=== PATIENT | male | born 1945 | race Caucasian/White ===

== ENCOUNTER → 2017-12-01 | Outpatient (CLI) | payer BC, MEDICARE ==
[~2017-12-01] MED LIST: AMLO-104 PO; ONDA4TAB97 PO; PER PO; SCOT TD
--- NOTE | 2017-12-01 10:07 | RADIOLOGY IMAGING REPORT ---
FAC[place] [facility] [place]IENT NAME: Felipe Coates : 1945 MR: [id number] V: [id number] EXAM DATE: ORDERING PHYSICIAN: FREDDY MORALES TECHNOLOGIST: Location: [facility] - [place] Patient: Felipe Coates : 1945 Visit/Account:[id number] Date of Sevice: 12/01/2017 LIVER HISTORY: Elevated LFTs COMPARISON: CT January 10, 2016 FINDINGS: Gallbladder: Gallbladder wall appears slightly irregular and thickened measuring 4 mm in thickness. There is shadowing emanating from the gallbladder which could represent stones sludge or calcificatio ns within the wall. There is a negative Ziegler sign by technologist notation Liver: Liver is mildly enlarged with increased echogenicity throughout the liver which can be seen wi th fatty infiltration or other infiltrative process Common duct: Normal, six mm diameter. Pancreas: No demonstration of a pancreatic mass although the tail is partially obscured by bowel gas Right kidney: Right kidney appears unremarkable measuring 13 cm in length. Upper abdominal aorta and IVC: The aorta appears patent. IVC is obscured by bowel gas Ascites: None visualized. IMPRESSION: Mild hepatomegaly with increased echogenicity throughout the liver which can be seen with fatty infil tration other infiltrative process Gallbladder wall appears thickened and slightly irregular with shadowing emanating from the gallbladd er. This could be related to shadowing stones sludge or calcifications within the gallbladder wall Report Dictated By: Deidre Padron MD at 12/01/2017 9:13 AM Report E-Signed By: Deidre Padron MD at 12/01/2017 10:02 AM WSN:[email or web address]
== END ==
LOC: US 07:08
PROVIDERS: ATTEND Nurse Practitioner Family
DX: K80.20 Calculus of gallbladder without cholecystitis without obstruction (principal); R16.0 Hepatomegaly, not elsewhere classified
CPT/HCPCS: 76705

== ENCOUNTER 2018-06-30 15:05 | Inpatient (IN) | payer BC, MEDICARE ==
[~2018-06-30] VITALS: Ht 177.8 cm; Wt 116.1 kg
[2018-06-30] MEDS ORDERED: UNKOWN (15:31)
[2018-06-30] MEDS ORDERED: NS(*) 0.9% 1000 ML BAG 1,000 ML IV ONE ×2 (15:44→16:55)
[2018-06-30] MEDS ORDERED: ONDANSETRON 4 MG/2 ML VIAL IVP ONE (15:45)
--- NOTE | 2018-06-30 15:49 | ER Report ---
History and Physical Time Seen By MD: 15:35 Hx. of Stated Complaint: HAD A SMALL BOWEL OBSTRUCTION LAST YEAR. STATES ABOUT A MONTH AGO HE WOULD "HAVE THESE EVENTS" THAT WOULD LAST A DAY THAT CONSISTED OF VOMITTING AND DRY HEAVING. THIS OCCURED 4 TIMES LAST MONTH. AFTER DINNER THURSDAY THIS WEEK HE BEGAN VOMITTING AND HAS NOT STOPPED SINCE HPI/ROS CHIEF COMPLAINT: Nausea HISTORY OF PRESENT ILLNESS: 72 yo male presents to the ED with c/o N/V since Thursday. Reports that he has had N/V about once a week for several weeks before Thursday. He states that he vomits brown fluid numerous times per day since Thursday and that he belches frequently as well. Reports that he has not been able to eat during this time and states his last BM was 3 days ago, but that it was formed and was not unusual in color or consistency. Denies fever, chills, shortness of breath, or chest pain. Denies pain or difficulty with urination. REVIEW OF SYSTEMS: Constitutional: As above. Eyes: No discharge. ENT: No sore throat. Cardiovascular: As above. Respiratory: As above. Gastrointestinal: As above. Genitourinary: As above. Musculoskeletal: No back pain. Skin: No rashes. Neurological: No headache. Allergies: Coded Allergies: No Known Drug Allergies (Unverified , 01/10/16) Home Meds Reported Medications Losartan Potassium (LOSARTAN POTASSIUM) 50 Mg Tablet, 1 TAB PO QDAY 06/30/18 Discontinued Reported Medications [Unkown] No Conflict Check 06/30/18 Past Medical/Surgical History Past surgical and medical history of a pituitary tumor, hypertension, cardiac disease, small bowel obstruction with surgical repair, neck Shoulder and leg surgery, alcohol use. Reviewed Nurses Notes: Yes Hx Smoking: No Hx Substance Use Disorder: No Hx Alcohol Use: Yes (2-3 daily ) Constitutional Vital Sign - Last 24 Hours 06/30/18 06/30/18 06/30/18 06/30/18 15:22 15:30 16:00 16:30 Temp 97.5 Pulse 94 91 87 85 Resp 18 B/P (MAP) 135/92 135/90 (105) 129/82 (98) 134/89 (104) Pulse Ox 93 90 95 94 O2 Delivery Room Air 06/30/18 06/30/18 17:00 17:30 Pulse 93 91 B/P (MAP) 134/123 (127) 129/88 (102) Pulse Ox 93 93 Physical Exam General Appearance: The patient is alert, has no immediate need for airway protection and no signs of toxicity. Eyes: Pupils equal and round no pallor or injection. ENT, Mouth: Mucous membranes are dry. Respiratory: There are no retractions, lungs are clear to auscultation. Cardiovascular: Regular rate and rhythm. No murmurs or rubs noted. Gastrointestinal: Abdomen is distended and diffusely tender, no masses, bowel sounds hypoactive, with a few distant tinkles. No abdominal bruits. Neurological: A&Ox4, no focal neuro deficits noted. Moving all extremities. Following all commands. Skin: Warm and dry, no rashes. Musculoskeletal: Neck is supple non tender. Extremities are nontender, nonswollen and have full range of motion. DIFFERENTIAL DIAGNOSIS: After history and physical exam differential diagnosis was considered for bowel obstruction, gastroenteritis, pancreatitis, intussusception, diverticulitis, constipation. Medical Decision Making Data Points Result Diagram: 06/30/18 1527 06/30/18 1527 Laboratory Hematology Test 06/30/18 15:27 Red Blood Count 5.93 M/uL (4.00-5.60) Mean Corpuscular Volume 91.5 fL (80.0-96.0) Mean Corpuscular Hemoglobin 31.1 pg (26.0-33.0) Mean Corpuscular Hemoglobin Concent 34.0 g/dL (32.0-36.0) Red Cell Distribution Width 13.1 % (11.5-14.5) Mean Platelet Volume 7.3 fL (7.2-11.1) Neutrophils (%) (Auto) 77.1 % (39.4-72.5) Lymphocytes (%) (Auto) 14.5 % (17.6-49.6) Monocytes (%) (Auto) 8.1 % (4.1-12.4) Eosinophils (%) (Auto) 0.0 % (0.4-6.7) Basophils (%) (Auto) 0.3 % (0.3-1.4) Nucleated RBC Relative Count (auto) 0.1 /100WBC Neutrophils # (Auto) 6.9 K/uL (2.0-7.4) Lymphocytes # (Auto) 1.3 K/uL (1.3-3.6) Monocytes # (Auto) 0.7 K/uL (0.3-1.0) Eosinophils # (Auto) 0.0 K/uL (0.0-0.5) Basophils # (Auto) 0.0 K/uL (0.0-0.1) Nucleated RBC Absolute Count (auto) 0.01 K/uL Sodium Level 140 mmol/L (137-145) Potassium Level 4.2 mmol/L (3.5-5.0) Chloride Level 107 mmol/L (98-107) Carbon Dioxide Level 16 mmol/L (22-30) Blood Urea Nitrogen 22 mg/dl (9-21) Creatinine 1.20 mg/dl (0.66-1.25) Glomerular Filtration Rate Calc 59.3 Random Glucose 177 mg/dl (75-110) Calcium Level 10.2 mg/dl (8.4-10.2) Total Bilirubin 2.0 mg/dl (0.2-1.3) Aspartate Amino Transf (AST/SGOT) 40 U/L (0-35) Alanine Aminotransferase (ALT/SGPT) 40 U/L (0-56) Alkaline Phosphatase 137 U/L (0-126) Total Protein 8.8 g/dl (6.3-8.2) Albumin 4.9 g/dl (3.5-5.0) Chemistry Test 06/30/18 15:27 White Blood Count 8.9 k/uL (4.5-11.0) Red Blood Count 5.93 M/uL (4.00-5.60) Hemoglobin 18.5 g/dL (14.0-18.0) Hematocrit 54.3 % (42.0-52.0) Mean Corpuscular Volume 91.5 fL (80.0-96.0) Mean Corpuscular Hemoglobin 31.1 pg (26.0-33.0) Mean Corpuscular Hemoglobin Concent 34.0 g/dL (32.0-36.0) Red Cell Distribution Width 13.1 % (11.5-14.5) Platelet Count 326 K/uL (150-450) Mean Platelet Volume 7.3 fL (7.2-11.1) Neutrophils (%) (Auto) 77.1 % (39.4-72.5) Lymphocytes (%) (Auto) 14.5 % (17.6-49.6) Monocytes (%) (Auto) 8.1 % (4.1-12.4) Eosinophils (%) (Auto) 0.0 % (0.4-6.7) Basophils (%) (Auto) 0.3 % (0.3-1.4) Nucleated RBC Relative Count (auto) 0.1 /100WBC Neutrophils # (Auto) 6.9 K/uL (2.0-7.4) Lymphocytes # (Auto) 1.3 K/uL (1.3-3.6) Monocytes # (Auto) 0.7 K/uL (0.3-1.0) Eosinophils # (Auto) 0.0 K/uL (0.0-0.5) Basophils # (Auto) 0.0 K/uL (0.0-0.1) Nucleated RBC Absolute Count (auto) 0.01 K/uL Glomerular Filtration Rate Calc 59.3 Calcium Level 10.2 mg/dl (8.4-10.2) Total Bilirubin 2.0 mg/dl (0.2-1.3) Aspartate Amino Transf (AST/SGOT) 40 U/L (0-35) Alanine Aminotransferase (ALT/SGPT) 40 U/L (0-56) Alkaline Phosphatase 137 U/L (0-126) Total Protein 8.8 g/dl (6.3-8.2) Albumin 4.9 g/dl (3.5-5.0) EKG/Imaging Imaging Location: [facility] - [place] Patient: Felipe Coates : 1945 Visit/Account:[id number] Date of Sevice: 06/30/2018 HISTORY: Evaluate nasogastric tube position. DATE: 06/30/2018 5:24 PM TECHNIQUE: CHEST SINGLE AP COMPARISON: Chest radiographs January 13, [address] abdomen and pelvis June 30, 2018 FINDINGS: The cardiomediastinal silhouette is of normal size and contour. No pleural effusion. No pneumothorax. No consolidation. The lungs are adequately expanded. The NG tube tip is not definitively identified. IMPRESSION: Tube tip not identified. Report Dictated By: Inocencia Moy MD at 06/30/2018 6:53 PM Report E-Signed By: Inocencia Moy MD at 06/30/2018 6:55 PM WSN:[id number] Location: [facility] - [place] Patient: Felipe Coates : 1945 Visit/Account:[id number] Date of Sevice: 06/30/2018 CT ABDOMEN PELVIS W/ CON HISTORY: Abdominal pain TECHNIQUE: Axial images were obtained through the abdomen and pelvis with intravenous contrast . One of the following dose optimization techniques was utilized in the performance of this exam: automated exposure control; adjustment of the mA and/or kv according to patient size; or use of iterative reconstruction technique. Specific details can be referenced in the facility's radiology CT exam operational policy. CONTRAST: 75 cc of Isovue-370 COMPARISON: CT abdomen/pelvis 01/10/2016 FINDINGS: Visualized lung bases: Negative. Hepatobiliary: Gallstones with pneumobilia. No biliary ductal dilatation. Spleen: Negative. Adrenals: Negative. Pancreas: Negative. Kidneys/ureters/bladder: Nonobstructing left renal calculi measuring up to 4 mm. No ureteral calculus or hydronephrosis. Left renal cysts measuring up to 3.7 x 2.6 cm. Bowel/peritoneum/mesentery: Fluid-filled dilated stomach as well as multiple fluid-filled dilated small bowel loops measuring up to 4 cm. Fluid-filled mildly dilated colon to the mid descending colon where there is a 4 cm segment of mass like narrowing. No free air. There is stool and gas within the more distal colon. Trace amount of fluid along the leaves of the mesentery without michelle ascites. Vessels: Mild arterial calcifications. Lymph nodes: Negative. Pelvic genitourinary: Negative. Bones/body wall: ORIF of the right femoral neck. Multilevel moderate degenerative disc disease within the spine. Grade 1 anterolisthesis at L4-L5 measuring 4 mm. Tiny umbilical hernia containing fat. Other findings: None significant IMPRESSION: 1. Findings concerning for an obstructing mass measuring 4 cm in length at the mid descending colon with fluid-filled, mildly dilated preceding colon and small bowel.. Recommend colonoscopy for further evaluation. 2. Trace amount of fluid along the leaves of the mesentery without michelle asci olesya. 3. Gallstones with pneumobilia without biliary ductal dilatation. Findings could be secondary to instrumentation or recently passed stone. Recommend clinical correlation. Report Dictated By: Janes Gutierrez MD at 06/30/2018 4:42 PM Report E-Signed By: Janes Gutierrez MD at 06/30/2018 4:53 PM WSN:[email or web address] ED Course/Re-evaluation Clinical Indication for ER IV: Hydration, IV Access ED Course Patient admitted to room. History and physical obtained with differential diagnoses considered. IV started. CBC, CMP, Lipase and UA obtained. H&H 18.5 and 54.3. Glucose 177. 1000 mL normal saline bolus. Zofran administered with improvement in nausea. Patient refuses pain medication at this time. CT with contrast of abdomen revealed small bowel obstruction due to possible mass. Did review the results with the patient. Also spoke with Dr. Saleem the general surgeon cash applications manager, the patient was admitted to the surgical services for small bowel obstruction. NG tube was placed with approximately 900 mL of yellowish to dark greenish material. 06/30/2018 5:38:[address] Saleem, general surgeon cash applications manager. Reviewed the case and he was able to review images. Decision made to admit patient. The patient was seen and evaluated by LEONARD Baptiste student, I agree with her assessment and plan, I did evaluate and assess the patient myself. Decision to Disposition Date: Jun 30, 2018 Decision to Disposition Time: 17:37 Depart Departure Latest Vital Signs Vital Signs Date Time Temp Pulse Resp B/P (MAP) Pulse Ox O2 Delivery O2 Flow Rate FiO2 06/30/18 17:30 91 129/88 (102) 93 06/30/18 15:22 97.5 18 Room Air Impression: Primary Impression: Small bowel obstruction Condition: Improved Disposition: Admitted from ER Referrals: FREDDY MORALES (PCP) WENCESLAO OLSEN-BC Jun 30, 2018 15:49
[2018-06-30 15:54] LABS: PLATELET COUNT, AUTOMATED 326 K/uL (150-450)
[2018-06-30] MEDS ORDERED: IOPAMIDOL 76% 150 ML INFUS BTL 150 ML ONE (16:06)
--- NOTE | 2018-06-30 16:57 | RADIOLOGY IMAGING REPORT ---
FACILITY: [facility] - [place] PATIENT NAME: Felipe Coates : 1945 MR: [id number] V: [id number] EXAM DATE: ORDERING PHYSICIAN: WENCESLAO OLSEN TECHNOLOGIST: Location: [facility] Patient: Felipe Coates : 1945 Visit/Account:[id number] Date of Sevice: 06/30/2018 CT ABDOMEN PELVIS W/ CON HISTORY: Abdominal pain TECHNIQUE: Axial images were obtained through the abdomen and pelvis with intravenous contrast . One of the following dose optimization techniques was utilized in the performance of this exam: automate d exposure control; adjustment of the mA and/or kv according to patient size; or use of iterative rec onstruction technique. Specific details can be referenced in the facility's radiology CT exam operati onal policy. CONTRAST: 75 cc of Isovue-370 COMPARISON: CT abdomen/pelvis 01/10/2016 FINDINGS: Visualized lung bases: Negative. Hepatobiliary: Gallstones with pneumobilia. No biliary ductal dilatation. Spleen: Negative. Adrenals: Negative. Pancreas: Negative. Kidneys/ureters/bladder: Nonobstructing left renal calculi measuring up to 4 mm. No ureteral calculu s or hydronephrosis. Left renal cysts measuring up to 3.7 x 2.6 cm. Bowel/peritoneum/mesentery: Fluid-filled dilated stomach as well as multiple fluid-filled dilated sm all bowel loops measuring up to 4 cm. Fluid-filled mildly dilated colon to the mid descending colon w here there is a 4 cm segment of mass like narrowing. No free air. There is stool and gas within the m ore distal colon. Trace amount of fluid along the leaves of the mesentery without michelle ascites. Vessels: Mild arterial calcifications. Lymph nodes: Negative. Pelvic genitourinary: Negative. Bones/body wall: ORIF of the right femoral neck. Multilevel moderate degenerative disc disease withi n the spine. Grade 1 anterolisthesis at L4-L5 measuring 4 mm. Tiny umbilical hernia containing fat. Other findings: None significant IMPRESSION: 1. Findings concerning for an obstructing mass measuring 4 cm in length at the mid descending colon w ith fluid-filled, mildly dilated preceding colon and small bowel.. Recommend colonoscopy for further evaluation. 2. Trace amount of fluid along the leaves of the mesentery without michelle ascites. 3. Gallstones with pneumobilia without biliary ductal dilatation. Findings could be secondary to inst rumentation or recently passed stone. Recommend clinical correlation. Report Dictated By: Janes Gutierrez MD at 06/30/2018 4:42 PM Report E-Signed By: Janes Gutierrez MD at 06/30/2018 4:53 PM WSN:[email or web address]
[2018-06-30] MEDS ORDERED: LOSA50TA80 PO (18:16)
[2018-06-30 18:28] VITALS: BP 152/90
--- NOTE | 2018-06-30 18:58 | RADIOLOGY IMAGING REPORT ---
FACILITY: [facility] - [place] PATIENT NAME: Felipe Coates : 1945 MR: [id number] V: [id number] EXAM DATE: ORDERING PHYSICIAN: WENCESLAO OLSEN TECHNOLOGIST: Location: [facility] - [place] Patient: Felipe Coates : 1945 Visit/Account:[id number] Date of Sevice: 06/30/2018 HISTORY: Evaluate nasogastric tube position. DATE: 06/30/2018 5:24 PM TECHNIQUE: CHEST SINGLE AP COMPARISON: Chest radiographs January 13, [address] abdomen and pelvis June 30, 2018 FINDINGS: The cardiomediastinal silhouette is of normal size and contour. No pleural effusion. No pne umothorax. No consolidation. The lungs are adequately expanded. The NG tube tip is not definitively i dentified. IMPRESSION: Tube tip not identified. Report Dictated By: Inocencia Moy MD at 06/30/2018 6:53 PM Report E-Signed By: Inocencia Moy MD at 06/30/2018 6:55 PM WSN:[id number]
--- NOTE | 2018-06-30 19:46 | Gen Surgery History & Physical ---
History of Present Illness Chief Complaint vomiting History of Present Illness 72 yo m with vomiting for the last several days. he has had vomiting periodically over the last 6 wks. normal bms. last bm was 2 days ago. +flatus. minimal abd pain. h/o surgery for sbo in the past. no other abd surgeries. no colonoscopy in the past. appropriate amount of urine but dark. 20 wt loss after stopping etoh. pmh/psh: laparoscopic surgery for sbo, orthopedic surgeries, htn fam hx: mother had lung ca from smoking, father had unknown ca that spread to his back, dm social hx: quit etoh about 5 mo ago, no cigs History Home Meds Reported Medications Losartan Potassium (LOSARTAN POTASSIUM) 50 Mg Tablet, 1 TAB PO QDAY 06/30/18 Discontinued Reported Medications [Unkown] No Conflict Check 06/30/18 Allergies: Coded Allergies: No Known Drug Allergies (Unverified , 01/10/16) Review of Systems Constitutional: Other (10 pt ros neg except per hpi) Exam General Appearance: Alert, Awake, No Acute Distress Neuro: No Gross deficits Eyes: Other (per, eomi) ENT: Moist Mucous Membranes Neck: No Masses Cardiovascular: Other (reg rate) Respiratory: No Respiratory Distress GI: Other (soft, mild distention, minimal ttp) Extremities: Other (no pitting edema) Integumentary: Skin Intact without Lesion / Mass Psych: Alert & Oriented X3, Appropriate Mood & Affect Medical Decision Making Data Points Result Diagram: 06/30/18 1527 06/30/18 1527 Assessment and Plan Problems: (1) Colon obstruction Assessment & Plan: 06/30/18: ngt, ice chips, pain/nausea control, sigmoidoscopy tomorrow, likely surgery after that, cea pending Copies to: FREDDY MORALES ; Venous Thromboembolism Antithrombotics Is Pt On Any Antithrombotics?: No LUIZ GEORGES Jun 30, 2018 19:46
[2018-06-30] MEDS ORDERED: PROMETHAZINE 25 MG/ML 1 ML AMP IVP PRN (19:50)
[2018-06-30] MEDS: NS(*) 0.9% 1000 ML BAG 1,000 ML IV SCH (20:09)
[2018-06-30] MEDS: ONDANSETRON 4 MG/2 ML VIAL IVP PRN (20:10)
[2018-06-30 22:53] VITALS: BP 148/85
[2018-07-01] VITALS (7 sets, daily range): BP systolic 139–154; BP diastolic 87–96; Ht 177.8 cm; Wt 116.1 kg
[2018-07-01] MEDS: ONDANSETRON 4 MG/2 ML VIAL IVP PRN ×2 (01:06→09:41)
[2018-07-01] MEDS: NS(*) 0.9% 1000 ML BAG 1,000 ML IV SCH (04:31)
--- NOTE | 2018-07-01 07:45 | General Surgery Progress Note ---
Subjective Progress Notes Subjective feels fine. large bm. Physical Exam Vital Signs Date Time Temp Pulse Resp B/P (MAP) Pulse Ox O2 Delivery O2 Flow Rate FiO2 07/01/18 02:54 97.7 83 16 149/96 (113) 94 Nasal Cannula 2.0 Intake and Output 07/01/18 07:00 Intake Total 2210 ml Output Total 2150 ml Balance 60 ml Intake IV Total 2210 ml Output Gastric Drainage Total 2150 ml # Voids 1 # Bowel Movements 1 General Appearance: No Acute Distress GI: Other (abd soft) Result Diagram: 06/30/18 1527 06/30/18 1527 Assessment and Plan Problems: (1) Colon obstruction Assessment & Plan: 06/30/18: ngt, ice chips, pain/nausea control, sigmoidoscopy tomorrow, likely surgery after that, cea pending 07/01/18: large bm. cont ngt. sigmoidoscopy today. Exam Sepsis Risk: No Definite Risk LUIZ GEORGES Jul 01, 2018 07:45
[2018-07-01] MEDS ORDERED: FAMOTIDINE(*) 20MG/50ML PREMIX 50 ML IVPB ONE (08:20)
[2018-07-01] MEDS ORDERED: NORMOSOL R SOLN(*) 1000 ML BAG 1,000 ML IV ONE (08:20)
[2018-07-01] MEDS ORDERED: MIDAZOLAM 2 MG/2 ML VIAL ONE (10:54)
[2018-07-01] MEDS ORDERED: KETAMINE HCL 500 MG/10 ML VIAL ONE (10:55)
--- NOTE | 2018-07-01 16:19 | Medical Nutrition Therapy ---
Nutrition Anthropometrics Height (Inches): 70.00 Height (Calculated Centimeters: 177.463497 Weight (Pounds): 256 Weight (Calculated Kilograms): 116.346 BMI: 36.8 Anirudh Nutrition Score: Adequate Anirudh Nutrition Risk Score: 20 Dietary Referral Nutrition Risk Factors: Nutrition Risk Comment: Physical Findings Physical Appearance: Obese BMI 30-39 Skin Appearance Skin Appearance: Edema Edema Location Modifier: Edema Location: Type of Edema: Degree of Edema: Gastrointestinal Symptoms GI Symtoms: Nausea, Change in Bowel Pattern Tube Present: NG Bowel Sounds: Recent Bowel Pattern: Stool Characteristics: Nutritional Diagnosis Nutritional Risk Acuity 1: GI Obstruction Nutritional Risk Acuity 4: Modified Diet Past Medical History: HTN Nutritional Acuity: 1-High Diet Type: NPO (Nothing by Mouth) Nutrition Monitoring & Eval RD Patient Assessment Time: [address] Assessment Type: RD Assessment Patient Nutrition Acuity: 1-High Follow Up Date: Jul 04, 2018 Nutritional Comment: 07/01 Pt was for a small bowel obstruction. Pt was put on NPO with ice and has a NG tube to remove blockage. Pt may go into surgery if NG does not remove blockage. Pt has a hx of HTN which is being controled with medication. Pt has high levels of Hgb 18.5, Hct 54.3, BUN 22, RG 177, AST 40, total bilirubin 2, alkaline phosphate of 137, and total protein of 8.8. Will continue to monitor pt as they progress to PO diet. JULIAN XIE Jul 01, 2018 16:16
--- NOTE | 2018-07-02 12:43 | Short(Outpt) Discharge Summary ---
Discharge Summary Reason for Hosp/Final Diag: (1) Colon obstruction Hospital Course & Plan: 06/30/18: ngt, ice chips, pain/nausea control, sigmoidoscopy tomorrow, likely surgery after that, cea pending 07/01/18: large bm. cont ngt. sigmoidoscopy today. mass found on sigmoidoscopy. will transfer to [facility] for colonic stent placement so that partial colectomy can likely be done laparoscopically and in one stage. Departure Discharge to: Another Hospital Discharge Instructions Home Meds Reported Medications Losartan Potassium (LOSARTAN POTASSIUM) 50 Mg Tablet, 1 TAB PO QDAY 06/30/18 Discontinued Reported Medications [Unkown] No Conflict Check 06/30/18 Activity: As Tolerated Special Instructions: NG right nare, 20 gauge IV Left forearm LUIZ GEORGES Jul 02, 2018 12:43
== END 2018-07-01 15:30 | disposition short-term general hospital (02) | DRG 376 ==
LOC: ER 15:36 → MED 17:33
PROVIDERS: ADMIT Surgery; ATTEND Surgery
PROC: 0D9670Z Drainage of Stomach with Drainage Device, Via Natural or Artificial Opening (ICD-10-PCS; 2018-06-30)
PROC: 3E0H8GC Introduction of Other Therapeutic Substance into Lower GI, Via Natural or Artificial Opening Endoscopic (ICD-10-PCS; 2018-07-01)
PROC: 0DBN8ZX Excision of Sigmoid Colon, Via Natural or Artificial Opening Endoscopic, Diagnostic (ICD-10-PCS; principal; 2018-07-01 10:53)
DX: C18.6 Malignant neoplasm of descending colon (principal); I10 Essential (primary) hypertension
CPT/HCPCS: 71045; 74177; 82040; 82247; 82310; 82374; 82378; 82435; 82565; 82947; 84075; 84132; 84155; 84295; 84450; 84460; 84520; 85025; 88305; 88342; 96361; 96374; 99284; J2250; J2405; J2550; J7030; Q9967

== ENCOUNTER → 2018-07-01 | Outpatient (CLI) | payer BC, MEDICARE ==
[~2018-07-01] MED LIST changes: +LOSA50TA80 PO; +UNKOWN
[2018-07-01 15:21] VITALS: BMI 36.7
== END ==
LOC: AMB 15:01
PROVIDERS: ATTEND Nurse Practitioner
DX: K63.0 Abscess of intestine (principal)
CPT/HCPCS: A0425; A0426

== ENCOUNTER 2018-08-09 15:41 | Inpatient (IN) | payer BC, MEDICARE ==
[2018-07-01 15:21] VITALS: Ht 177.8 cm; Wt 110.2 kg
[~2018-08-09] VITALS: Ht 177.8 cm; Wt 110.2 kg
[2018-08-09 16:04] VITALS: BP 95/73
[2018-08-09] MEDS ORDERED: FLUSH 10 ML SYR IVP PRN (16:30)
[2018-08-09] MEDS ORDERED: MORPHINE 2 MG/ML SYR IVP PRN (16:30)
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
[2018-08-09] MEDS ORDERED: LIDOCAINE/SOD BICARB 8.4% SYR ONE (16:54)
[2018-08-09] MEDS: ONDANSETRON 4 MG/2 ML VIAL IVP PRN ×2 (17:07→21:08)
[2018-08-09] MEDS: NS(*) 0.9% 1000 ML BAG 1,000 ML IV PRN (17:07)
[2018-08-09 19:52] VITALS: BP 107/72
[2018-08-09] MEDS: FAMOTIDINE 20 MG TAB PO SCH (20:17)
[2018-08-09] MEDS: ACETAMINOPHEN 325 MG TAB PO PRN (21:08)
[2018-08-09 23:39] VITALS: BP 100/68
[2018-08-10] MEDS: NS(*) 0.9% 1000 ML BAG 1,000 ML IV PRN (01:04)
[2018-08-10 03:24] VITALS: BP 92/54
[2018-08-10 06:18] LABS: PLATELET COUNT, AUTOMATED 276 K/uL (150-450)
[2018-08-10 06:54] VITALS: BP 101/67
--- NOTE | 2018-08-10 08:03 | General Surgery Progress Note ---
Subjective Progress Notes Subjective Feeling better this morning. No pain. Nausea better. UOP has picked up. Physical Exam Vital Signs Date Time Temp Pulse Resp B/P (MAP) Pulse Ox O2 Delivery O2 Flow Rate FiO2 08/10/18 06:54 97.7 78 16 101/67 (78) 95 Nasal Cannula 1.0 Intake and Output 08/10/18 07:00 Intake Total 500 ml Output Total 150 ml Balance 350 ml Intake Oral 500 ml Output Stool Total 150 ml # Bowel Movements 1 General Appearance: Alert, Awake, No Acute Distress, Afebrile GI: Soft and Non-Tender (Dressing C/D/I, stoma is pink and functional.) Extremities: Warm, Perfused Result Diagram: 08/10/18 0532 08/10/1832 Assessment and Plan Problems: (1) Cancer of descending colon Status: Chronic Assessment & Plan: 08/10/18: Doing better this morning. Stop IV fluids. Continue regular diet. PT/OT, wound care. Will ask PT/wound care to evaluate for wound vac placement. Stoma teaching. Lovenox, H2 jesenia. ECF eval. (2) Wound of abdomen Status: Chronic (3) Dehydration Status: Resolved Condition Stable. Time Spent: < 30 min Exam Sepsis Risk: No Definite Risk SARWAT BLOOD MD Aug 10, 2018 08:03
[2018-08-10] MEDS: ENOXAPARIN 40 MG/0.4ML SYR SC SCH (08:51)
[2018-08-10] MEDS: LOSARTAN POTASSIUM 50 MG TAB PO SCH (08:51)
[2018-08-10] MEDS: FAMOTIDINE 20 MG TAB PO SCH ×2 (08:51→20:09)
[2018-08-10] MEDS: APAP/HYDROCODONE 325/5 TAB PO PRN (12:05)
[2018-08-10 12:41] VITALS: BP 96/64
--- NOTE | 2018-08-10 15:30 | NUR ---
patient currently refusing the attempt to void. pt has not voided since 629. pt was educated on protocol and risks associated with not having a spontaneous void every 6 hours. pt's educated for assistance with pt's non-compliance.
--- NOTE | 2018-08-10 15:55 | Medical Nutrition Therapy ---
Nutrition Anthropometrics Height (Inches): 70.00 Height (Calculated Centimeters: 177.692564 Weight (Pounds): 243 Weight (Calculated Kilograms): 110.223 BMI: 34.9 Anirudh Nutrition Score: Probably Inadequate Anirudh Nutrition Risk Score: 14 Dietary Referral Nutrition Risk Factors: Diff. Swallowing Nutrition Risk Comment: Physical Findings Physical Appearance: Obese BMI 30-39 Skin Appearance Skin Appearance: Edema Edema Location Modifier: Both Edema Location: Upper Extremity Type of Edema: Degree of Edema: 3+ Gastrointestinal Symptoms GI Symtoms: Change in Bowel Pattern Tube Present: Bowel Sounds: Recent Bowel Pattern: Stool Characteristics: Nutritional Diagnosis Nutritional Risk Acuity 2: Swallowing Problem (r/t scar from trach), Abcess/Non-Healing Wound, New Colostomy Past Medical History: HTN Nutritional Acuity: 2-Moderate Nutrition Diagnosis: Increased Nutrient Needs, Altered GI Function Nutrition Etiology: Psychological Issues Nutrition Problem/Etiology/Sym: AEB colostomy and non-healing wound. Adjusted Energy Requirement Re: 2678 (HB adj for obesity X 1.3 SF) Protein Requirement: 115 (1.5gm/kg IBW) Fluid Requirement: 2675 (1ml/kcal) Diet Type: Regular Nutrition Intervention: Cont diet as ordered, Encourage intake, Between meal supplement Additional Diet Restrictions: PUT PROTEIN POWDER IN FOOD Diet Comment To [facility]: OFFER MARTÍNEZ AT BRFT AND SUPPER Nutrition Monitoring & Eval Nutrition Goals: Eat 75-100% Meal, Drink > 2 liters/day RD Patient Assessment Time: [address] Assessment Type: RD Assessment Patient Nutrition Acuity: 2-Moderate Follow Up Date: Aug 13, 2018 Nutritional Comment: 5/4 Pt admitted with non healing wound and colostomy. Pt reporting difficulity with swallowing r/t scar from trach. Pt is eating 75% of meals. Will obtain list of foods that are easy for him to swallow. Hct 32.8, Hgb 11.1, both low. Will cont to monito and encourage intake. HASEEB HOWE Aug 10, 2018 15:49
--- NOTE | 2018-08-10 16:08 | NUR ---
Occupational Therapy Impression Pt with PT wound care PT this afternoon, unavailable for OT evaluation. Per EMR, pt likely demonstrates need for further skilled rehab services to optimize (I) for ADLs. Will follow and complete evaluation as pt is available. Occupational Therapy Goals Patient's Goal
--- NOTE | 2018-08-10 16:15 | NUR ---
Physical Therapy Impression Wound vac dressing applied with 125mmHg continuous suction and bridged between all midline wound openings. Plan to change dressing on Thursday08/13/18. Physical Therapy Goals 1. Pt to be SBA/CGA for sit to/from supine transfers 2. Pt to be SBA/CGA for sit to/from stand transfers 3. Pt to tolerate ambulation x 150' with least restrictive device and SBA 4. Pt to tolerate up/down 4 steps with rail and SBA/CGA to access environment. Patient's Goals
--- NOTE | 2018-08-10 16:32 | NUR ---
Physical Therapy Impression PT/OT rossi completed together for pt safety and support. 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 Pt requires encouragement to participate in any functional activity, indicating that everything hurts. Pt has recently been provided with pain medication for dressing change and is slightly agreeable to complete supine to/from sit transfer with cues for log roll technique to minimize discomfort conservatively as well. Pt tolerated this well and did note improved tolerance for this activity as compared to previous attempts. Pt declines to stand for bedding change, and instead opts to roll side to side once returned to supine, in order for nursing to complete this activity. Pt declines to side step to head of bed to facilitate better positioning in bed, and instead insists on being boosted with draw sheet which requires total assist of 3 people to complete. Physical Therapy Goals 1. Pt to be SBA/CGA for sit to/from supine transfers 2. Pt to be SBA/CGA for sit to/from stand transfers 3. Pt to tolerate ambulation x 150' with least restrictive device and SBA 4. Pt to tolerate up/down 4 steps with rail and SBA/CGA to access environment. Patient's Goals
--- NOTE | 2018-08-10 16:49 | NUR ---
Occupational Therapy Impression Initial OT evaluation completed. Pt with high PLOF. Assist x2 supine to sit and sit to supine with log roll. Tolerated sitting EOBx5 minutes for partial bed bath. Pt then requesting return to supine in bed. Pt will benefit from further OT services to optimize (I) and tolerance for engagement in ADLs/IADLs. Occupational Therapy Goals 1) Pt will be Min A UB/LB dressing. 2) Pt will be Min A toilet task. 3) Pt will be Min A grooming.hygiene seated. Patient's Goal
[2018-08-10 17:07] VITALS: BP 95/58
--- NOTE | 2018-08-10 18:36 | NUR ---
patient continues to refuse the attempt to void. pt has not voided since 629. pt was educated on protocol and risks associated with not having a spontaneous void every 6 hours. Patient became more uncooperative with education and this RN quietly excused herself from the room. MD aware of pt's non-compliance.
[2018-08-10 19:33] VITALS: BP 85/52
[2018-08-10] MEDS: ACETAMINOPHEN 325 MG TAB PO PRN (20:09)
[2018-08-10 23:21] VITALS: BP 129/79
[2018-08-11 02:55] VITALS: BP 101/62
[2018-08-11 06:13] LABS: PLATELET COUNT, AUTOMATED 273 K/uL (150-450)
[2018-08-11 07:05] VITALS: BP 93/58
[2018-08-11] MEDS: APAP/HYDROCODONE 325/5 TAB PO PRN ×2 (07:41→20:57)
--- NOTE | 2018-08-11 08:33 | General Surgery Progress Note ---
Subjective Progress Notes Subjective No complaints. Feeling better. Not much pain. Tolerating diet. Appetite improving. Physical Exam Vital Signs Date Time Temp Pulse Resp B/P (MAP) Pulse Ox O2 Delivery O2 Flow Rate FiO2 08/11/18 07:05 98.1 84 20 93/58 (70) 93 Nasal Cannula 1.0 Intake and Output 08/11/18 07:00 Intake Total 1040 ml Output Total 450 ml Balance 590 ml Intake Oral 1040 ml Output Urine Total 350 ml Stool Total 100 ml General Appearance: Alert, Awake, No Acute Distress, Afebrile GI: Soft and Non-Tender (Wound vac dressing is in place with a good seal. Stoma is pink and functional.) Extremities: Warm, Perfused Result Diagram: 08/11/1860208/11/18602 Assessment and Plan Problems: (1) Cancer of descending colon Status: Chronic Assessment & Plan: 08/10/18: Doing better this morning. Stop IV fluids. Continue regular diet. PT/OT, wound care. Will ask PT/wound care to evaluate for wound vac placement. Stoma teaching. Lovenox, H2 jesenia. ECF eval. : Doing well. Continue PT/OT, wound care, stoma education. To ECF in the next day or two if approved. (2) Wound of abdomen Status: Chronic (3) Dehydration Status: Resolved Condition Stable. Time Spent: < 30 min Exam Sepsis Risk: No Definite Risk SARWAT BLOOD MD Aug 11, 2018 08:33
[2018-08-11] MEDS: LOSARTAN POTASSIUM 50 MG TAB PO SCH (09:00)
--- NOTE | 2018-08-11 10:44 | NUR ---
ECF Referral - Met with patient and his yesterday to discuss rehab philosophy. very agreeable, patient was very short with his replies, to the point that I asked him what I had done to upset him. He replied with he is so frustrated, so many people saying they will do certain things and then it not working out. He said he would rather then return to [facility], conversation redirected to possibilities and potential. Patient has [employer]BS and will require a preauthorization, informed of this. He huffed and rolled his eyes and stated "whatever". His overall goal is to go home, his states she will be caring for the colostomy and will be there to support him. Case management and [facility] notified to begin preauthorization.
--- NOTE | 2018-08-11 10:48 | NUR ---
ECF Referral - PASRR negative. Mychal Vangle stated she had started the preauthorization process.
[2018-08-11] MEDS: FAMOTIDINE 20 MG TAB PO SCH ×2 (11:43→20:57)
[2018-08-11] MEDS: ENOXAPARIN 40 MG/0.4ML SYR SC SCH (11:44)
--- NOTE | 2018-08-11 13:28 | NUR ---
Physical Therapy Impression Pt approached regarding PT/OT co-treat session to assist with mobility. Pt immediately states "No, I'm not getting out of bed today. My doctor told me to rest today and that I would be going upstairs to start therapy tomorrow. So I am resting and I'm going to take full advantage of this." Physical Therapy Goals 1. Pt to be SBA/CGA for sit to/from supine transfers 2. Pt to be SBA/CGA for sit to/from stand transfers 3. Pt to tolerate ambulation x 150' with least restrictive device and SBA 4. Pt to tolerate up/down 4 steps with rail and SBA/CGA to access environment. Patient's Goals
--- NOTE | 2018-08-11 13:39 | NUR ---
Occupational Therapy Impression Pt adamantly refusing PT/OT tx this date. Reporting "the doctor ordered" pt to rest today in preparation for transfer to [facility] tomorrow. WIll follow. Occupational Therapy Goals 1) Pt will be Min A UB/LB dressing. 2) Pt will be Min A toilet task. 3) Pt will be Min A grooming.hygiene seated. Patient's Goal
[2018-08-11 16:40] VITALS: BP 111/74
[2018-08-11 19:00] VITALS: BP 100/57
[2018-08-11] MEDS ORDERED: MELATONIN 3 MG TAB PO SCH (21:00)
[2018-08-11 23:09] VITALS: BP 107/65
[2018-08-12 02:53] VITALS: BP 114/69
[2018-08-12 07:14] VITALS: BP 105/66
[2018-08-12] MEDS: LOSARTAN POTASSIUM 50 MG TAB PO SCH (09:00)
[2018-08-12] MEDS: FAMOTIDINE 20 MG TAB PO SCH (09:20)
[2018-08-12] MEDS: ENOXAPARIN 40 MG/0.4ML SYR SC SCH (09:20)
--- NOTE | 2018-08-12 10:21 | General Surgery Progress Note ---
Subjective Progress Notes Subjective doing well. pain controlled. ameya po. Physical Exam Vital Signs Date Time Temp Pulse Resp B/P (MAP) Pulse Ox O2 Delivery O2 Flow Rate FiO2 08/12/18 07:14 98.3 81 22 105/66 (79) 92 Nasal Cannula 1.0 Intake and Output 08/12/18 07:00 Intake Total 700 ml Output Total 1200 ml Balance -500 ml Intake Oral 700 ml Output Urine Total 1200 ml # Voids 2 General Appearance: No Acute Distress GI: Other (abd soft, wound vac in place) Result Diagram: 08/11/1860208/11/18602 Assessment and Plan Problems: (1) Cancer of descending colon Status: Chronic Assessment & Plan: 08/10/18: Doing better this morning. Stop IV fluids. Continue regular diet. PT/OT, wound care. Will ask PT/wound care to evaluate for wound vac placement. Stoma teaching. Lovenox, H2 jesenia. ECF eval. : Doing well. Continue PT/OT, wound care, stoma education. To ECF in the next day or two if approved. 08/12/18: doing fine. to ecf today. (2) Wound of abdomen Status: Chronic (3) Dehydration Status: Resolved Exam Sepsis Risk: No Definite Risk LUIZ GEORGES Aug 12, 2018 10:21
--- NOTE | 2018-08-26 07:45 | Hospitalist Depart ---
Discharge Summary Reason for Hosp/Final Diag: (1) Cancer of descending colon Status: Chronic Hospital Course & Plan: 08/10/18: Doing better this morning. Stop IV fluids. Continue regular diet. PT/OT, wound care. Will ask PT/wound care to evaluate for wound vac placement. Stoma teaching. Lovenox, H2 jesenia. ECF eval. : Doing well. Continue PT/OT, wound care, stoma education. To ECF in the next day or two if approved. 08/12/18: doing fine. to ecf today. (2) Wound of abdomen Status: Acute (3) Dehydration Status: Resolved Departure Weight (Pounds): 243 Weight (Ounces): 8.0 Condition: Improved Discharge Instructions Home Meds Reported Medications Losartan Potassium (LOSARTAN POTASSIUM) 50 Mg Tablet, 1 TAB PO QDAY 06/30/18 Diet: Regular Activity: As Tolerated Special Instructions: d/c to extended care Venous Thromboembolism Antithrombotics Is Pt On Any Antithrombotics?: No LUIZ GEORGES Aug 26, 2018 07:45
== END 2018-08-12 11:29 | DRG 394 ==
LOC: MED 15:41
PROVIDERS: ADMIT Surgery; ATTEND Surgery
DX: K94.09 Other complications of colostomy (principal); C18.6 Malignant neoplasm of descending colon; E86.0 Dehydration; R53.83 Other fatigue; I10 Essential (primary) hypertension
CPT/HCPCS: 36415; 82310; 82374; 82435; 82565; 82947; 84132; 84295; 84520; 85025; 97161; 97163; 97166; 97605; 97606; J1650; J2405; J7030

== ENCOUNTER 2018-08-12 11:30 | Inpatient (IN) | payer BC, MEDICARE ==
[2018-07-01 15:21] VITALS: Ht 177.8 cm; Wt 111.4 kg
[~2018-08-12] VITALS: Ht 177.8 cm; Wt 111.4 kg
[2018-08-12] MEDS ORDERED: FLUSH 10 ML SYR IVP PRN (11:54)
[2018-08-12] MEDS ORDERED: MORPHINE 2 MG/ML SYR IVP PRN (11:54)
[2018-08-12] MEDS ORDERED: LOSARTAN POTASSIUM 50 MG TAB PO SCH (11:54)
[2018-08-12] MEDS ORDERED: ONDANSETRON 4 MG/2 ML VIAL IVP PRN (11:56)
[2018-08-12 12:37] VITALS: BP 106/70
--- NOTE | 2018-08-12 13:05 | Consultant Pharmacy Review ---
Clinical Documentation Clerk Review Medication Review Do All Mecications have a Diag: Yes Other General Cautions HYDROcodone / MOBILE THERAPIST Depressants Risk Rating D: Consider therapy modification Summary MOBILE THERAPIST Depressants may enhance the MOBILE THERAPIST depressant effect of HYDROcodone. Severity Major Reliability Rating Fair Patient Management Avoid concomitant use of hydrocodone and benzodiazepines or other MOBILE THERAPIST depressants when possible. These agents should only be combined if alternative treatment options are inadequate. If combined, limit the dosages and duration of each drug to the minimum possible while achieving the desired clinical effect. Consider starting with a 20% to 30% lower hydrocodone dose when using together with any other MOBILE THERAPIST depressant. This recommendation comes specifically from the prescribing information for the Zohydro ER brand of extended-release hydrocodone but is likely reasonable for other hydrocodone- containing products as well. Warn patients and caregivers about the risk of slowed or difficult breathing and/or sedation and monitor patients closely for evidence of excessive MOBILE THERAPIST depression. MOBILE THERAPIST Depressants Interacting Members Acrivastine; Afloqualone; Alcohol (Ethyl); Alfentanil; ALPRAZolam; Amisulpride; Amitriptyline; Amobarbital; Amoxapine; ARIPiprazole; ARIPiprazole Lauroxil; Asenapine; Baclofen; Benperidol; Benzhydrocodone; Bilastine; Blonanserin; Brexanolone; Brexpiprazole; Brimonidine (Ophthalmic); Brivaracetam; Bromazepam; Bromperidol; Brompheniramine; Buclizine; Buprenorphine; BusPIRone; Butabarbital; Butalbital; Butorphanol; Carbinoxamine; Cariprazine; Carisoprodol; Cetirizine (Systemic); Chloral Betaine; Chloral Hydrate; ChlordiazePOXIDE; Chlormethiazole; Chlorpheniramine; ChlorproMAZINE; Chlorzoxazone; Cinnarizine; Clemastine; CloBAZam; ClomiPRAMINE; ClonazePAM; CloNIDine; Clorazepate; Clothiapine; CloZAPine; Codeine; Cyclobenzaprine; Cyproheptadine; Dantrolene; Desflurane; Desipramine; Desloratadine; Deutetrabenazine; Dexbrompheniramine; Dexchlorpheniramine; DiazePAM; Difenoxin; Dihydrocodeine; DimenhyDRINATE; Dimethindene (Systemic); DiphenhydrAMINE (Systemic); DiphenhydrAMINE (Topical); Diphenoxylate; Dosulepin; Doxepin (Systemic); Doxepin (Topical); Doxylamine; Droperidol; Ebastine; Efavirenz; Emedastine (Systemic); Entacapone; Eperisone; Esketamine; Estazolam; Eszopiclone; Ethosuximide; Ethotoin; Ethyl Loflazepate; Etizolam; Ezogabine; Felbamate; FentaNYL; Fexofenadine; Flibanserin; Flunarizine; Flunitrazepam; Fl upentixol; FluPHENAZine; Flurazepam; Gabapentin; Gabapentin Enacarbil; Glutethimide; GuanFACINE; Haloperidol; Halothane; Heroin; HYDROcodone; HYDROmorphone; HydrOXYzine; Iloperidone; Imipramine; Isoflurane; Ketamine; Ketotifen (Systemic); LamoTRIgine; LevETIRAcetam; Levocetirizine; Levomethadone; Levorphanol; Lofepramine; Loprazolam; Loratadine; LORazepam; Lormetazepam; Loxapine; Lurasidone; Maprotiline; Meclizine; Melitracen [INT]; Meperidine; Meprobamate; Meptazinol; Mequitazine; Metaxalone; Methadone; Methocarbamol; Methohexital; Methotrimeprazine; Methoxyflurane; Methsuximide; Mianserin; Midazolam; Mirtazapine; Molindone; Morphine (Systemic); Moxonidine; Nalbuphine; Nalfurafine; Nefopam; Nitrazepam; Nitrous Oxide; Nordazepam; Normethadone; Nortriptyline; OLANZapine; Olopatadine (Systemic); Opium; Opium Tincture; Orphenadrine; Oxatomide; Oxazepam; Oxomemazine; OxyCODONE; OxyMORphone; Paliperidone; Paraldehyde; Paregoric; Pentazocine; PENTobarbital; Perampanel; Periciazine; Perphenazine; Pheniramine; PHENobarbital; Phenyltoloxamine; Pholcodine; Pimozide; Pipamperone [INT]; Pizotifen; Pomalidomide; Prazepam; Pregabalin; Primidone; Prochlorperazine; Promazine; Promethazine; Propofol; Protriptyline; Pyrilamine (Systemic); Quazepam; QUEtiapine; Ramelteon; Remife ntanil; Reserpine; Rilmenidine; RisperiDONE; Rupatadine; Scopolamine (Ophthalmic); Scopolamine (Systemic); Secobarbital; Sevoflurane; Sodium Oxybate; Stiripentol; SUFentanil; Sulpiride; Suvorexant; Tapentadol; Tasimelteon; Temazepam; Tetrabenazine; Thalidomide; Thiopental; Thioridazine; Thiothixene; Thonzylamine; TiaGABine; TiZANidine; Tofisopam; Tolcapone; Topiramate; TraMADol; TraZODone; Triazolam; Trifluoperazine; Trimeprazine; Trimipramine; Triprolidine; Valerian; Vigabatrin; Zaleplon; Ziconotide; Ziprasidone; Zolpidem; Zonisamide; Zopiclone; Zuclopenthixol Discussion A US Food and Drug Administration (FDA) drug safety communication states that combined use of opioids with benzodiazepines or other drugs that depress the MOBILE THERAPIST has resulted in serious side effects, including slowed or difficult breathing and deaths.1 Another FDA safety communication recommends that patients should not be excluded from treatment with methadone or buprenorphine for opioid dependence due to concomitant use of MOBILE THERAPIST depressants, considering both the potential risks of this combination and the potential risks of untreated opioid dependence.2 A cohort study found that the risk of opioid-related overdose was 10-fold higher in patients who also received benzodiazepines (7.0 per 10,000 person- years) compared with patients who received opioids alone (0.7 per 10,000 person years).3 In another analysis of opioid-treated patients in the [facility] database, the risk of from drug overdose was significantly higher among those prescribed concomitant benzodiazepines compared with those receiving opioids alone (HR 3.86).4 A cohort study of 4501 patients prescribed buprenorphine or methadone for treatment of opioid dependence reported an increased risk of both overdose-related deaths (adjusted HR 1.49 to 2.02) and all-cause mortality (adjusted HR 1.28 to 2.01) for patients receiving concurrent benzodiazepines, z-drugs (zopiclone, zolpidem, or zaleplon), or pregabalin.5 Not all of these increases were statistically significant, but the overall picture of a general increased risk with these combinations is consistent with other data. The odds of opioid-related was also significantly increased in opioid-treated patients who were exposed to gabapentin within 120 days (adjusted OR 1.5) as compared with those taking an opioid prescription alone, according to a case-control study of 1,256 cases (individuals who of an opioid-related cause) and 4,619 matched controls (opioid users).6 Similarly, another case-control study by the same group found that concomitant exposure to opioids and pregabalin within 120 days was associated with increased odds of opioid-related compared to opioids alone (adjusted OR 1.7) in an analysis of 1,417 cases and 5,097 matched controls.7 Additional analyses have concluded that other MOBILE THERAPIST depressants (eg, antipsychotics, antidepressants, antiepileptics) and alcohol are often implicated in opioid-related overdose and .8,9 The prescribing information for the Zohydro ER brand of extended-release hydrocodone also recommends starting at a 20% to 30% lower hydrocodone dose if being initiated in a patient who is taking another drug with MOBILE THERAPIST depressant effects.10 The recommendation further suggests consideration of a reduction in the dose of the other MOBILE THERAPIST depressant. This warning is due to the potential for additive or synergistic MOBILE THERAPIST depression, leading to an increased risk of adverse effects such as respiratory depression, hypotension, excessive sedation, and coma. Footnotes 1. US Food and Drug Administration. FDA Drug Safety Communication: FDA warns about serious risks and when combining opioid pain or cough medicines with benzodiazepines; requires its strongest warning. http://www.fda.gov/Drugs/DrugSafety/wrx854476.htm. Published November 07, 2015. Pneumococcal Vaccine HX Pneumo Vac ([id number]): No Comments Regarding the Review He may receive the flu and Prenvar 13 vaccines if he desires. DEREK DIAZ Aug 12, 2018 13:05
--- NOTE | 2018-08-12 14:30 | NUR ---
Physical Therapy Impression OT recently completed discussion with pt's , per pt consent, to address home environment set up and allow discussion regarding pt's previous perception of therapy interventions in SNF environment. Pt has taken a rather non-participatory role in rehab thus far and is now resistant to further therapy today, after transfer to room on ECF unit and reported fatigue. PT will complete mobility eval tomorrow in order to conserve energy and coordinate with wound vac dressing change and ostomy wafer change as well. Physical Therapy Goals Patient's Goals
--- NOTE | 2018-08-12 15:59 | OT ECF NOTE ---
Type of Note: Initial Note Primary Medical Diagnosis: Generalized weakness s/p recent complicated surgical history for colonic obstruction and descending colon cancer. Patient has a wound vac and recent colostomy Occupational Therapy Evaluation Date: 08/12/18 SUBJECTIVE: Prior Hospitalization: [facility] 06/30/18-07/01/18. Transferred to [facility] in [place] 07/01/18-July 2018. Pt had been at [facility] for skilled care about one week. Then, [facility] medical 08/09/18-. Prior Level of Function: Independent with all ADLs/IADLs. Occasionally, ambulating with a cane. 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 Prior Living Status: Single level house Spouse Assist by family Community Services: No known needs Home Accessibility: Stairs without rails-Two steps into home. One step down into bathroom. All needs on one level Tub/shower combination Spouse reports narrow doorways. May need to side step with RW into home office. Equipment Owned: Cane Medical Complications/Past Medical History: Please refer to EMR Psychosocial Support: Supportive spouse Pain Scale (0-10): None reported at time of evaluation Hand Dominance: Right OBJECTIVE: Strength: MMT: Right Left Shoulder Flexion [*] [*] Elbow Flexion [*] [*] Wrist Extension [*] [*] Block Sawyer [*] [*] (5= normal, 4= good, 3= fair, 2= poor, 1= trace) ROM: Right, Moderately limited Sensation: No paraesthesia reported Functional Transfer: Assistive Device: Transfer Ability: Subjective evaluation. Pt having returned to bed with nursing staff prior to OT arrival. Pt resistant to functional evaluation at this time. Extensive discussion regarding scheduling of future treatment sessions and creating a routine to promote pt engagement. ADL: Upper body dressing: Assistive device: Upper body dressing ability: Lower body dressing: Assistive device: Lower body dressing ability: Toileting: Assistive device: Toileting ability: Grooming/hygiene: Assistive device: Grooming ability: Bathing: Assistive device: Bathing ability: Standardized Assessment: Suzette Index of Activities of Daily Livin/20 upon initial evaluation (08/12/18). 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 Upon admission to [facility], pt is dependent with assist x1-2 for all self- cares. Recommend EZ lift for nursing staff at this time. "Vasyl" will benefit from skilled OT services to optimize independence for engagement in ADLs, improve activity tolerance for return to independence with IADLs, and decrease caregiver burden. Upon initial evaluation, pt resistant to evaluation. Spouse present and providing much of the information regarding PLOF. Problem List/Current Limitations: Pain Decreased activity tolerance Generalized weakness Lack of motivation Short Term Goals: 1) Pt will be Min A UB/LB dressing. 2) Pt will be Min A grooming/hygiene. 3) Pt will be Min A toilet ask. 4) Pt Suzette Index of ADLs score will improve by 2 points. 5) Pt will be Min A shower task. 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 If you have any questions, concerns, or comments about this report or plan, please contact me at . Jessica Parra MS, OTR/L Occupational Therapist HARRY
[2018-08-12] MEDS ORDERED: ONDANSETRON 4 MG ODT TABDP SL ONE (18:31)
[2018-08-12] MEDS: APAP/HYDROCODONE 325/5 TAB PO PRN ×2 (18:34→23:16)
[2018-08-12] MEDS: ONDANSETRON 4 MG ODT TABDP SL PRN (18:50)
[2018-08-12 19:50] VITALS: BP 111/66
[2018-08-12] MEDS: FAMOTIDINE 20 MG TAB PO SCH (20:33)
[2018-08-12] MEDS: MELATONIN 3 MG TAB PO SCH (20:33)
--- NOTE | 2018-08-12 22:41 | NUR ---
patient has refused to be repositioned this shift. He states it hurts his abdomen to be moved. Patient educated on the increased risk of pressure ulcers developing.
[2018-08-13 07:22] VITALS: BP 103/67
[2018-08-13] MEDS: FAMOTIDINE 20 MG TAB PO SCH ×2 (09:43→21:19)
[2018-08-13] MEDS: ENOXAPARIN 40 MG/0.4ML SYR SC SCH (09:43)
--- NOTE | 2018-08-13 10:40 | Medical Nutrition Therapy ---
Nutrition Anthropometrics Height (Inches): 70.00 Height (Calculated Centimeters: 177.431285 Weight (Pounds): 237 Weight (Calculated Kilograms): 107.501 BMI: 34 Hx Weight Loss: Yes Anirudh Nutrition Score: Probably Inadequate Anirudh Nutrition Risk Score: 15 Dietary Referral Nutrition Risk Factors: Unplanned Loss >10lbs Nutrition Risk Comment: Physical Findings Physical Appearance: Obese BMI 30-39 Skin Appearance Skin Appearance: Medial abdomen large wound with wound vac Edema Edema Location Modifier: Both Edema Location: Lower Extremity Type of Edema: Degree of Edema: 2+ Gastrointestinal Symptoms GI Symtoms: Nausea, Appetite Changes, Weight Changes, Change in Bowel Pattern Tube Present: Bowel Sounds: Recent Bowel Pattern: Colostomy Stool Characteristics: Brown, Soft Nutrition/Food History Increased Appetite Good Skipped Meals: Yes Nutritional Diagnosis Nutritional Risk Acuity 2: Abcess/Non-Healing Wound, New Colostomy Past Medical History: HTN, Colorectal cancer, Ostomy Placement, Cirrhosis Nutritional Acuity: 1-High Nutrition Diagnosis: Increased Nutrient Needs Nutrition Etiology: Physiological Causes Nutrition Problem/Etiology/Sym: large wound abdomen, wound vac, reported wt loss of 7% x 6 weeks Energy Requirement: 2926 (MSJ x AF 1.6) Protein Requirement: 130 (1.2g/kg) Fluid Requirement: 2926 (1mL/kcal) Diet Type: Diet as Tolerated SAMARIA/REG Nutrition Intervention: Between meal supplement, Vit/min support Food Likes: Beef Goulash, Gumbo, Minestrone Optional Order Time?: Yes Diet Comment To RSA: Please deliver Gene at 10am and 2pm (or deliver when pick up and delivery driver breakfast and lunch trays). Encourage protein at every meal. Nutrition Monitoring & Eval Nutrition Follow-Up: Fair Intake Nutrition Monitoring: Monitor weight, wound healing, food intake RD Patient Assessment Time: [address] Assessment Type: RD Assessment Patient Nutrition Acuity: 1-High Follow Up Date: Aug 17, 2018 Nutritional Comment: 08/13/2018-Reviewed pt medical hx. Pertinent PMH includes colorectal cancer, HTN, and cirrhosis. Pt has large open incision on medial abdomen currently has wound vac in place. Spoke with Vasyl and his Triny. Discussed increased energy and protein needs related to wound healing. Was on SAMARIA and was recieving Gene on Med/surg, reordered pt should receive at 10am and 2pm every day. Pt reported wt loss over the past 6 weeks. Pt stated his typical wt is 255 lbs and is currently 237 lbs (wt loss of 7% UBW). Encouraged pt to eat high protein foods. Will continue to monitor intakes, weight, and status of wound healing. ERIKA ZEPEDA Aug 13, 2018 10:40
[2018-08-13] MEDS: APAP/HYDROCODONE 325/5 TAB PO PRN ×2 (12:37→21:20)
--- NOTE | 2018-08-13 13:34 | NUR ---
Occupational Therapy Impression Pt alert, resistant to engage in OT tx. Refusing suggestions for tx. Extensive education for POC and rationale provided. Mod Ax2 sit<>stand with EZ lift. Standing x1 minute. Spouse plans to bring in personal cushion for pressure relief as pt infrequently repositions self. Pt then returning to chair for lunch. Continue POC. Occupational Therapy Goals 1) Pt will be Min A UB/LB dressing. 2) Pt will be Min A grooming/hygiene. 3) Pt will be Min A toilet ask. 4) Pt Suzette Index of ADLs score will improve by 2 points. 5) Pt will be Min A shower task. Patient's Goal
--- NOTE | 2018-08-13 13:50 | NUR ---
Physical Therapy Impression Please refer to PT eval report for mobility accomplished with initial treatment visit. Pt requires encouragement to participate in any additional activity aside from simply returning to bed with use of EZ lift. Physical Therapy Goals 1. Pt to be CGA/Min assist for sit to/from supine transfers 2. Pt to be CGA/Min assist for sit to/from stand transfers 3. Pt to be SBA/CGA for ambulation with least restrictive device x 100' 4. Pt to ameya up/down 4 steps with rail and SBA/CGA Patient's Goals
--- NOTE | 2018-08-13 15:15 | NUR ---
Physical Therapy Impression No selective debridement completed. Wound bed appears very healthy with excellent granulation base noted. Wounds cleansed with sterile saline and wound vac drape prepped around each individual opening to protect periwound skin. Black granufoam simplace dressing applied to connect all 6 separate sites along this midline dehisced incision area and communicate together through trac pad placed over deepest wound sites towards caudal end. Settings remain the same at 125mmHg, continuous suction with good seal obtained. Physical Therapy Goals 1. Pt to be CGA/Min assist for sit to/from supine transfers 2. Pt to be CGA/Min assist for sit to/from stand transfers 3. Pt to be SBA/CGA for ambulation with least restrictive device x 100' 4. Pt to ameya up/down 4 steps with rail and SBA/CGA Patient's Goals
[2018-08-13 19:55] VITALS: BP 102/71
[2018-08-13] MEDS: MELATONIN 3 MG TAB PO SCH (21:19)
[2018-08-14 07:24] VITALS: BP 109/70
[2018-08-14] MEDS: LOSARTAN POTASSIUM 50 MG TAB PO SCH (09:00)
[2018-08-14] MEDS: FAMOTIDINE 20 MG TAB PO SCH ×2 (09:11→21:19)
[2018-08-14] MEDS: MULTIVITAMINS CHEW SCH (09:12)
[2018-08-14] MEDS: MINERALS CHEW SCH (09:12)
[2018-08-14] MEDS: ENOXAPARIN 40 MG/0.4ML SYR SC SCH (09:12)
[2018-08-14 15:50] VITALS: BP 117/80
[2018-08-14] MEDS: APAP/HYDROCODONE 325/5 TAB PO PRN (17:40)
[2018-08-14] MEDS: MELATONIN 3 MG TAB PO SCH (21:19)
[2018-08-14] MEDS: ACETAMINOPHEN 325 MG TAB PO PRN (21:23)
[2018-08-15] MEDS: APAP/HYDROCODONE 325/5 TAB PO PRN ×2 (03:16→15:47)
[2018-08-15 07:36] VITALS: BP 105/72
[2018-08-15] MEDS: LOSARTAN POTASSIUM 50 MG TAB PO SCH (09:00)
[2018-08-15] MEDS: MINERALS CHEW SCH (09:11)
[2018-08-15] MEDS: ENOXAPARIN 40 MG/0.4ML SYR SC SCH (09:11)
[2018-08-15] MEDS: MULTIVITAMINS CHEW SCH (09:11)
[2018-08-15] MEDS: FAMOTIDINE 20 MG TAB PO SCH ×2 (09:11→20:52)
[2018-08-15 15:07] VITALS: BP 110/71
[2018-08-15] MEDS: ACETAMINOPHEN 325 MG TAB PO PRN (20:52)
[2018-08-15] MEDS: MELATONIN 3 MG TAB PO SCH (20:52)
[2018-08-16 08:36] VITALS: BP 106/71
[2018-08-16] MEDS: MULTIVITAMINS CHEW SCH (08:37)
[2018-08-16] MEDS: MINERALS CHEW SCH (08:37)
[2018-08-16] MEDS: ENOXAPARIN 40 MG/0.4ML SYR SC SCH (08:37)
[2018-08-16] MEDS: LOSARTAN POTASSIUM 50 MG TAB PO SCH (08:38)
[2018-08-16] MEDS: FAMOTIDINE 20 MG TAB PO SCH ×2 (08:38→21:43)
[2018-08-16] MEDS: APAP/HYDROCODONE 325/5 TAB PO PRN ×2 (08:43→21:44)
--- NOTE | 2018-08-16 09:43 | Medical Nutrition Therapy ---
Nutrition Anthropometrics Height (Inches): 70.00 Height (Calculated Centimeters: 177.737635 Weight (Pounds): 237 Weight (Calculated Kilograms): 107.501 BMI: 34 Hx Weight Loss: Yes Anirudh Nutrition Score: Probably Inadequate Anirudh Nutrition Risk Score: 15 Dietary Referral Nutrition Risk Factors: Unplanned Loss >10lbs Nutrition Risk Comment: Physical Findings Physical Appearance: Obese BMI 30-39 Skin Appearance Skin Appearance: Edema Edema Location Modifier: Both Edema Location: Lower Extremity Type of Edema: Degree of Edema: 2+ Gastrointestinal Symptoms GI Symtoms: Change in Bowel Pattern Tube Present: Bowel Sounds: Recent Bowel Pattern: Colostomy Stool Characteristics: Brown, Soft Nutritional Diagnosis Nutritional Risk Acuity 2: Abcess/Non-Healing Wound, New Colostomy Past Medical History: HTN, Colorectal cancer, Ostomy Placement, Cirrhosis Nutritional Acuity: 1-High Nutrition Diagnosis: Increased Nutrient Needs Nutrition Etiology: Physiological Causes Nutrition Problem/Etiology/Sym: large wound abdomen, wound vac, reported wt loss of 7% x 6 weeks Energy Requirement: 2926 (MSJ x AF 1.6) Protein Requirement: 130 (1.2g/kg) Fluid Requirement: 2926 (1mL/kcal) Diet Type: Diet as Tolerated SAMARIA/REG Nutrition Intervention: Between meal supplement, Vit/min support Food Likes: Beef Goulash, Gumbo, Minestrone Optional Order Time?: Yes Additional Diet Restrictions: BRING MARTÍNEZ WHEN CLIPPER AUTOMATIC BRFT TRAY AT ~10:00 AND LUNCH TRAY AT ~14:00 Diet Comment To RSA: Encourage protein at every meal. Nutrition Monitoring & Eval Nutrition Goals: Eat 75-100% Meal Nutrition Follow-Up: Fair Intake RD Patient Assessment Time: [address] Assessment Type: RD Re-Assessment Patient Nutrition Acuity: 1-High Follow Up Date: Aug 24, 2018 Nutritional Comment: 08/13/2018-Reviewed pt medical hx. Pertinent PMH includes colorectal cancer, HTN, and cirrhosis. Pt has large open incision on medial abdomen currently has wound vac in place. Spoke with Vasyl and his Triny. Discussed increased energy and protein needs related to wound healing. Was on SAMARIA and was recieving Martínez on Med/surg, reordered pt should receive at 10am and 2pm every day. Pt reported wt loss over the past 6 weeks. Pt stated his typical wt is 255 lbs and is currently 237 lbs (wt loss of 7% UBW). Encouraged pt to eat high protein foods. Will continue to monitor intakes, weight, and status of wound healing. HAYLEY 07/17 Pt cont on SAMARIA, eating 667% of small to regular portions. No nutr supplement intake reported. No new wt obtained. Pt cont 2+ edema BLE and 3+ edema to feet. Anticipate wt loss when edema resolved. Will cont to monitor and encourage high protein intake and supplment intake for wound healing. HASEEB HOWE Aug 16, 2018 09:43
--- NOTE | 2018-08-16 10:44 | PT ECF NOTE ---
Type of Note: Initial Note Primary Medical Diagnosis: Generalized weakness s/p recent complicated surgical history for colonic obstruction and descending colon cancer. Patient has a wound vac and recent colostomy Physical Therapy Mobility and Wound Vac Evaluation Date: 08/13/18 SUBJECTIVE: Prior Hospitalization: [facility] 06/30/18-07/01/18. Transferred to [facility] in [place] 07/01/18-July 2018. Pt had been at [facility] for skilled care about one week. Then, [facility] medical 08/09/18-08/12/18. Prior Level of Function: Independent with all ADLs/IADLs. Occasionally, ambulating with a cane. 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 Prior Living Status: Single level house Spouse Assist by family Community Services: No known needs Home Accessibility: Stairs without rails-Two steps into home. One step down into bathroom. All needs on one level Tub/shower combination Spouse reports narrow doorways. May need to side step with RW into home office. Equipment Owned: Cane Medical Complications/Past Medical History: Please refer to EMR Psychosocial Support: Supportive spouse Pain Scale (0-10): None reported at time of evaluation Hand Dominance: Right OBJECTIVE: Strength: Pt demos decreased initiation and participation, making it difficult to determine if weakness is related to true muscle weakness or generalized fatigue as opposed to disinterest. Pt agitated with any activity that would allow for objective measures and is only agreeable to participate in functional activity of returning to bed at time of eval. ROM: (please note any abnormalities) appears to be WFL; again declines any objective measure testing. Sensation: (please note any abnormalities) denies any paresthesias Other Neuro findings: appears to be WFL Bed Mobility: Encouraging log roll technique to protect abdominal incision and increase UE participation in skill. Assistive device: Bed rail; Head of bed slightly elevated Transfers: Minimum assistance/Moderate assistance; 2-person assist for pt safety Assistive Device: EZ/Patient assisted lift Gait: Pt states he is unable to ambulate Assistive device: Stairs: Assistive device: Timed Up and Go (>12 seconds indicated increased risk for falls): Pt refuses to attempt ambulation 10 meter walk test (0.6m/second cannot function independently): n/a Other Objective Measures: Please refer to wound care eval and treat note for details related to wound vac application for midline dehisced incision. ASSESSMENT: Prior to June 2018, pt was (I) with all ADLs/IADLs and working part time. Upon admission to [facility], pt is dependent with assist x1-2 for all self- cares. Recommend EZ lift for nursing staff at this time to ensure safety, as pt states he is unable to walk. "Vasyl" will benefit from skilled PT services to optimize independence for engagement in ADLs including transfers, ambulation and general mobility for return to independence with IADLs, and decrease caregiver burden. Upon initial evaluation, pt resistant to participation in objective measures and evaluation completed with basic functional mobility to returning to bed with EZ lift. Spouse present throughout. Following mobility eval, PT completed wound eval with dressing change for wound vac that was initiated on Med/Surg unit. Pt noted to have dehisced surgical incision line with 6 areas of disruption along midline. Settings of vac will continue at 125mmHg, continuous suction with dressing changes to be completed by PT twice weekly due to complications of tunneling and undermining in some areas. Problem List/Current Limitations: Pain, Decreased activity ameya, Decreased strength, Decreased balance, Generalized weakness, Decreased initiation Lack of motivation Short Term Goals: 1. Pt to be CGA/Min assist for sit to/from supine transfers 2. Pt to be CGA/Min assist for sit to/from stand transfers 3. Pt to be SBA/CGA for ambulation with least restrictive device x 100' 4. Pt to ameya up/down 4 steps with rail and SBA/CGA 5. Pt to be able to manage home unit wound vac safely with base of wound demonstrating improved granulation and gradual closure of base. [facility] Goals: Return home with [facility] services for mobility and wound vac management. Patient Goals: Return home Rehabilitation Prognosis: Fair Barriers for Discharge: Pt's level of engagement in basic life skills and participation in therapeutic activities to regain strength; adjustment to sudden onset of life altering medical situation. PLAN: The patient will benefit from skilled physical therapy services 5 times per week for 2 weeks including: Therapeutic Exercise, Therapeutic Activities Transfer Training, Gait Training, Stair Training, ADL's, Safety Training, Wound Care, Pt/Caregiver Training, Bed Mobility Thank you for this referral. If you have any questions, concerns, or comments about this report or plan, please contact me at . H. Monalisa Tan, PT, MPT, OMS MTDD
--- NOTE | 2018-08-16 11:21 | NUR ---
Physical Therapy Impression PT/OT co-treat for pt safety and time split for billing purposes. Pt's out of room upon initiation of therapy visit. Pt somewhat resistant to getting up "this early" at 11:00 but was agreeable to participate, once functional aspect of treatment was discussed. Pt is aware that sitting up for meals is more beneficial for digestion and sitting up rather than laying in bed, is helpful for proper breathing. Pt tolerated log roll with CGA and [id number] cues to complete transfer supine to sit with decreased strain to abdomen. Pt the participated in sit to stand, again with CGA and use of FWW, with [id number] transfer to bedside chair. Pt is resistant to completing any greater activity, but demos adequate strength with this activity, such that ambulation would certainly be possible. No selective debridement completed. Wound bed appears very healthy with excellent granulation base noted. Wounds cleansed with sterile saline and wound vac drape prepped around each individual opening to protect periwound skin. Black granufoam simplace dressing applied to connect all 6 seperate sites along this midline dehisced incision area and communicate together through trac pad placed over deepest wound sites towards caudal end. Settings remain the same at 125mmHg, continuous suction with good seal obtained. Physical Therapy Goals 1. Pt to be CGA/Min assist for sit to/from supine transfers 2. Pt to be CGA/Min assist for sit to/from stand transfers 3. Pt to be SBA/CGA for ambulation with least restrictive device x 100' 4. Pt to ameya up/down 4 steps with rail and SBA/CGA Patient's Goals
--- NOTE | 2018-08-16 11:40 | NUR ---
Occupational Therapy Impression Mod Ax1 supine to sit with cues for log roll. CGA x2 stand pivot bed<>chair with RW. Pt requires significant encouragement to engage in tx. Continue POC. Occupational Therapy Goals 1) Pt will be Min A UB/LB dressing. 2) Pt will be Min A grooming/hygiene. 3) Pt will be Min A toilet ask. 4) Pt Suzette Index of ADLs score will improve by 2 points. 5) Pt will be Min A shower task. Patient's Goal
[2018-08-16] MEDS ORDERED: SALINE NASAL GEL 14.1 GM TUBE PRN (12:15)
[2018-08-16] MEDS ORDERED: IBUPROFEN 600 MG TAB PO PRN (14:25)
--- NOTE | 2018-08-16 14:27 | NUR ---
ostomy Dr. England came to see pt. He removed the sutures from pt's stoma. Wafer changed. colostomy bag was cleaned and put back on. Dr. England also spoke to pt about the pain pt experiences behind his eyes, mostly behind his R eye. naproxen ordered for eye pain.
--- NOTE | 2018-08-16 14:33 | General Surgery Progress Note ---
Subjective Progress Notes Subjective Patient reports right eye pain with lateral gaze, states this has been present for an extended period of time. Not eating much. Some nausea with eating. Good ostomy output and gas passage via ostomy. Interacting poorly with PT/OT staff, refusing to participate. Patient Complains of: Gastrointestinal: Nausea Physical Exam Vital Signs Date Time Temp Pulse Resp B/P (MAP) Pulse Ox O2 Delivery O2 Flow Rate FiO2 08/16/18 08:56 Nasal Cannula 1.0 08/16/18 08:50 98.6 08/16/18 08:36 85 20 106/71 (83) 92 Intake and Output 08/16/18 07:00 Intake Total 660 ml Output Total 1000 ml Balance -340 ml Intake Oral 660 ml Output Urine Total 1000 ml # Voids 3 General Appearance: Alert, Awake, No Acute Distress Neuro: No Gross deficits Eyes: PERRLA ENT: Moist Mucous Membranes Cardiovascular: Normal Rhythm & Peripheral Pulses, Regular Rate and Rhythm, Other (Bilateral lower extremity pitting edema with bronzing.) Chest: No Tenderness GI: Soft and Non-Tender, Other (Active bowel sounds. Mature appearing ostomy with normal appearing enteric output. Small area of mucocutaneous separation at inferior aspect of ostomy. Wound vac in place over midline abdominal wound.) Extremities: Soft and Non Tender, Warm, Edema Integumentary: Skin Intact without Lesion / Mass Psych: Alert & Oriented X3 Monitor Interpretation: Normal Sinus Rhythm Assessment and Plan Problems: (1) Cancer of descending colon Status: Chronic Assessment & Plan: Descending colon cancer - s/p Kelsie procedure - evidence of good bowel function - diet as tolerated - PRN pain medications - outpatient planning for adjuvant therapy (2) Wound of abdomen Status: Acute Assessment & Plan: Midline surgical wound - continue wound vac therapy - MWF vac changes - mucocutaneous sutures removed from ostomy secondary to ulceration - no indication for abx Time Spent: > 30 min RACHEL WIGGINS MD Aug 16, 2018 13:18
[2018-08-16 16:50] VITALS: BP 115/76
[2018-08-16] MEDS: NAPROXEN 500 MG TAB PO SCH (17:22)
[2018-08-16] MEDS: MELATONIN 3 MG TAB PO SCH (21:44)
[2018-08-17 07:13] VITALS: BP 106/73
--- NOTE | 2018-08-17 07:55 | NUR ---
Pt's panic Pt's came and got staff, reported stated that patient is in shock. Patient was given warmed blankets, as he said he was cold. When this RN entered room, I found him hyperventilating through his mouth, his teeth chattering, he said, quite angrily, "I'm freezing and I'm under six blankets!" and appeared to be completely panicked. This RN then checked some VS; about half an hour previously his VS were WNL. Resp 28, HR 92, sats 91% about 2 minutes after encouraging him to breathe through his nose where he has O2 at 1LPM per NC, axillary temp 98.1. Rechecked 5 minutes later and pt found more relaxed, resp rate 20, and teeth chattering stopped but with blanket up over his face. Encouraged to leave blanket off of his face, keep breathing through his nose.
[2018-08-17] MEDS: LOSARTAN POTASSIUM 50 MG TAB PO SCH (08:42)
[2018-08-17] MEDS: NAPROXEN 500 MG TAB PO SCH ×2 (08:42→17:09)
[2018-08-17] MEDS: ENOXAPARIN 40 MG/0.4ML SYR SC SCH (08:42)
[2018-08-17] MEDS: MULTIVITAMINS CHEW SCH (08:42)
[2018-08-17] MEDS: MINERALS CHEW SCH (08:42)
[2018-08-17] MEDS: FAMOTIDINE 20 MG TAB PO SCH ×2 (08:42→21:31)
--- NOTE | 2018-08-17 10:49 | NUR ---
5-day MDS completed with pt. C: 15, D: 02, E: no concerns, Q: plans to DC to community, no referrals made yet. Will continue to follow for DC plans. Pt also states he felt depressed one day, reporting having a discussion regarding cancer diagnosis with surgeon yesterday. SW offered counseling and mental health resources to pt, who refuses at this time, stating he is trying to work through things and figure out what he wants to do. GABBI will continue to follow.
[2018-08-17] MEDS: APAP/HYDROCODONE 325/5 TAB PO PRN ×2 (13:29→21:31)
--- NOTE | 2018-08-17 15:16 | NUR ---
Occupational Therapy Impression CGAx1 supine to sit with cues for log roll. CGA x1 stand pivot bed<>chair with RW. Refused further ADLs. Pt declined further needs at this time. Continue POC. Occupational Therapy Goals 1) Pt will be Min A UB/LB dressing. 2) Pt will be Min A grooming/hygiene. 3) Pt will be Min A toilet ask. 4) Pt Suzette Index of ADLs score will improve by 2 points. 5) Pt will be Min A shower task. Patient's Goal
--- NOTE | 2018-08-17 15:45 | NUR ---
Physical Therapy Impression Pt required Min/Mod assist to stand from regular height chair without folded blankets. Pt ambulated 5' from chair to head of bed with CGA, FWW and chair follow for safety. Pt then required Min assist to lift LE's into bed for sit to supine. Wounds 1-6 healing gradually along length of incision line. Wound vac drape applied to protect periwound skin and black simplace granufoam placed to contact each wound with 0.25" plain packing strip used in areas of greater depth to wick drainage to foam. Exact dimensions of each site listed below: 1. 1.5cm L x 0.8cm W x 2cm D 2. main center line healed; suture site to R) side tunnels at 3 o'clock towards mideling, measuring 2cm in depth 3. 1cm L x 1cm W x 0.1cm D 4. 2cm L x 1.1cm W x 4cm D 5. 1cm L x 0.8cm W x 3.2cm D 6. 0.3cm L x 0.3cm W x 3.5cm D 250ml currently in original canister applied when wound vac was applied on Med/Surg unit Physical Therapy Goals 1. Pt to be CGA/Min assist for sit to/from supine transfers 2. Pt to be CGA/Min assist for sit to/from stand transfers 3. Pt to be SBA/CGA for ambulation with least restrictive device x 100' 4. Pt to ameya up/down 4 steps with rail and SBA/CGA Patient's Goals
[2018-08-17 19:50] VITALS: BP 99/63
[2018-08-17] MEDS: MELATONIN 3 MG TAB PO SCH (21:31)
[2018-08-18 07:44] VITALS: BP 106/75
[2018-08-18] MEDS: LOSARTAN POTASSIUM 50 MG TAB PO SCH (08:41)
[2018-08-18] MEDS: FAMOTIDINE 20 MG TAB PO SCH ×2 (09:36→20:50)
[2018-08-18] MEDS: NAPROXEN 500 MG TAB PO SCH ×2 (09:36→16:28)
[2018-08-18] MEDS: ENOXAPARIN 40 MG/0.4ML SYR SC SCH (09:37)
[2018-08-18] MEDS: MINERALS CHEW SCH (09:41)
[2018-08-18] MEDS: APAP/HYDROCODONE 325/5 TAB PO PRN ×2 (09:41→20:48)
[2018-08-18] MEDS: MULTIVITAMINS CHEW SCH (09:41)
--- NOTE | 2018-08-18 10:40 | General Surgery Progress Note ---
Subjective Progress Notes Subjective feels better today, increased participation with PT. Up in chair this am. Physical Exam Vital Signs Date Time Temp Pulse Resp B/P (MAP) Pulse Ox O2 Delivery O2 Flow Rate FiO2 08/18/18 07:44 97.8 81 16 106/75 (85) 96 Nasal Cannula 0.5 Intake and Output 08/18/18 07:00 Intake Total 360 ml Output Total 450 ml Balance -90 ml Intake Oral 360 ml Output Urine Total 350 ml Stool Total 100 ml # Voids 1 # Bowel Movements 3 General Appearance: Alert, Awake, No Acute Distress, Afebrile Neuro: No Gross deficits Cardiovascular: Normal Rhythm & Peripheral Pulses, Regular Rate and Rhythm Respiratory: No Respiratory Distress, Clear to Auscultation GI: Soft and Non-Tender, Other (VAC intact, stoma patent) Musculoskeletal: No Weakness/Pain Integumentary: Skin Intact without Lesion / Mass Psych: Alert & Oriented X3, Appropriate Mood & Affect Monitor Interpretation: Normal Sinus Rhythm Assessment and Plan Problems: (1) Cancer of descending colon Status: Chronic Assessment & Plan: Descending colon cancer - s/p Kelsie procedure - evidence of good bowel function - diet as tolerated - PRN pain medications - outpatient planning for adjuvant therapy Will need Oncology consult as an outpt. Check CBC and CMP this am. Had CEA checked at [facility] several weeks ago. (2) Wound of abdomen Status: Acute Assessment & Plan: Midline surgical wound - continue wound vac therapy - MWF vac changes - mucocutaneous sutures removed from ostomy secondary to ulceration - no indication for abx Cont VAC, open areas healing in. Time Spent: > 30 min ARIAN VASQUEZ MD Aug 18, 2018 10:40
[2018-08-18 11:37] LABS: PLATELET COUNT, AUTOMATED 415 K/uL (150-450)
--- NOTE | 2018-08-18 11:42 | NUR ---
Occupational Therapy Impression Pt. performed bed mobility (utilizing a log roll) with Min A and stand step pivot transfers with use of FWW to/from shower chair with Min A x1. Continue with POC. Occupational Therapy Goals 1) Pt will be Min A UB/LB dressing. 2) Pt will be Min A grooming/hygiene. 3) Pt will be Min A toilet ask. 4) Pt Suzette Index of ADLs score will improve by 2 points. 5) Pt will be Min A shower task. Patient's Goal
--- NOTE | 2018-08-18 15:39 | NUR ---
Physical Therapy Impression Discussed with Pt overall goal of PT interventions is to assist Pt to become independent and functional at home. Pt agreeable. Pt required Mod A x2 to stand to RW, CGA x2 to ambulate 5' with RW, and Mod A for B LEs into a flat bed. Pt will continue to benefit from skilled PT for functional mobility training. Physical Therapy Goals 1. Pt to be CGA/Min assist for sit to/from supine transfers 2. Pt to be CGA/Min assist for sit to/from stand transfers 3. Pt to be SBA/CGA for ambulation with least restrictive device x 100' 4. Pt to ameya up/down 4 steps with rail and SBA/CGA Patient's Goals
[2018-08-18 16:30] VITALS: BP 101/71
[2018-08-18] MEDS: MELATONIN 3 MG TAB PO SCH (20:49)
[2018-08-19 08:10] VITALS: BP 104/71
[2018-08-19] MEDS: LOSARTAN POTASSIUM 50 MG TAB PO SCH (09:00)
[2018-08-19] MEDS: MINERALS CHEW SCH (09:17)
[2018-08-19] MEDS: MULTIVITAMINS CHEW SCH (09:17)
[2018-08-19] MEDS: APAP/HYDROCODONE 325/5 TAB PO PRN ×2 (09:17→20:22)
[2018-08-19] MEDS: NAPROXEN 500 MG TAB PO SCH ×2 (09:18→16:34)
[2018-08-19] MEDS: FAMOTIDINE 20 MG TAB PO SCH ×2 (09:18→20:22)
[2018-08-19] MEDS: ENOXAPARIN 40 MG/0.4ML SYR SC SCH (09:18)
--- NOTE | 2018-08-19 10:58 | NUR ---
Occupational Therapy Impression Min A supine to sit with log roll. Pt with no carryover for sequencing log roll and no recall for request to have consistent bed mobility with HOB flat. CGAx2 stand pivot bed<>chair with RW. Pt refusing further mobility. Initiated UB ther HEP. Continue POC. Occupational Therapy Goals 1) Pt will be Min A UB/LB dressing. 2) Pt will be Min A grooming/hygiene. 3) Pt will be Min A toilet ask. 4) Pt Suzette Index of ADLs score will improve by 2 points. 5) Pt will be Min A shower task. Patient's Goal
--- NOTE | 2018-08-19 14:02 | NUR ---
Physical Therapy Impression Pt continues to require encouragement to participate in therapy interventions. ModA provided for STS transfers with RW, PT provided cues for sequencing prior to STS transfer. Pt ambulates with forward flexed posture and shuffling gait, completed 7 total feet of ambulation with a 180 degree turn. Pt is fairly self limiting and declines encouragement to ambulate further. PT instruction for seated LE ther-ex with cues for eccentric control. Physical Therapy Goals 1. Pt to be CGA/Min assist for sit to/from supine transfers 2. Pt to be CGA/Min assist for sit to/from stand transfers 3. Pt to be SBA/CGA for ambulation with least restrictive device x 100' 4. Pt to ameya up/down 4 steps with rail and SBA/CGA Patient's Goals
--- NOTE | 2018-08-19 14:26 | NUR ---
Vaccines Called Shaenl Dow's office to inquire about PNA and Flu vaccines; they do not have any records of him receiving them.
[2018-08-19 19:25] VITALS: BP 106/72
[2018-08-19] MEDS: MELATONIN 3 MG TAB PO SCH (20:22)
[2018-08-20 07:43] VITALS: BP 104/76
[2018-08-20] MEDS: LOSARTAN POTASSIUM 50 MG TAB PO SCH (09:00)
[2018-08-20] MEDS: MINERALS CHEW SCH (09:34)
[2018-08-20] MEDS: ENOXAPARIN 40 MG/0.4ML SYR SC SCH (09:34)
[2018-08-20] MEDS: MULTIVITAMINS CHEW SCH (09:34)
[2018-08-20] MEDS: FAMOTIDINE 20 MG TAB PO SCH ×2 (09:34→20:23)
[2018-08-20] MEDS: NAPROXEN 500 MG TAB PO SCH ×2 (09:34→17:05)
--- NOTE | 2018-08-20 10:48 | NUR ---
Occupational Therapy Impression Min A supine to sit with v/c's for log roll. CGA stand pivot x1 with RW bed<>chair. CGA ambulation x8ft with RW. UB ther ex HEP. Pt declined ADLs. SpO2 WNL on room air. Continue POC. Occupational Therapy Goals 1) Pt will be Min A UB/LB dressing. 2) Pt will be Min A grooming/hygiene. 3) Pt will be Min A toilet ask. 4) Pt Suzette Index of ADLs score will improve by 2 points. 5) Pt will be Min A shower task. Patient's Goal
--- NOTE | 2018-08-20 14:15 | NUR ---
Physical Therapy Impression Pt ambulated from chair on window side of bed, to opposite side of bed with W/C follow by to allow pt to feel more secure. Pt is capable of completing this distance without a sitting rest break and is stable once he is standing. Pt notes that he felt capable of more but was apprehensive initially. Pt agreeable to work towards greater distance ambulation and W/C follow does help him to feel more confident. Physical Therapy Goals 1. Pt to be CGA/Min assist for sit to/from supine transfers 2. Pt to be CGA/Min assist for sit to/from stand transfers 3. Pt to be SBA/CGA for ambulation with least restrictive device x 100' 4. Pt to ameya up/down 4 steps with rail and SBA/CGA Patient's Goals
--- NOTE | 2018-08-20 15:15 | NUR ---
Physical Therapy Impression Wounds 1-6 healing gradually along length of incision line. Wound vac drape applied to protect periwound skin and freshly epithelialized wounds and black simplace granufoam placed to contact each wound with 0.25" plain packing strip used in areas of greater depth to wick drainage to foam. Exact dimensions of each site listed below: 1. 1cm L x 0.5cm W x 2cm D 2. main center line healed; suture site to R) side tunnels at 3 o'clock towards midline, measuring 1.8cm in depth 3. healed 4. 2cm L x 1cm W x 3.9cm D 5. 1cm L x 0.8cm W x 3.2cm D 6. 0.2cm L x 0.5cm W x 3.4cm D 300ml currently in original canister placed when wound vac was applied on Med/Surg unit. Physical Therapy Goals 1. Pt to be CGA/Min assist for sit to/from supine transfers 2. Pt to be CGA/Min assist for sit to/from stand transfers 3. Pt to be SBA/CGA for ambulation with least restrictive device x 100' 4. Pt to ameya up/down 4 steps with rail and SBA/CGA Patient's Goals
[2018-08-20] MEDS: APAP/HYDROCODONE 325/5 TAB PO PRN (15:20)
[2018-08-20 15:27] VITALS: BP 100/67
[2018-08-20] MEDS: MELATONIN 3 MG TAB PO SCH (20:23)
[2018-08-21 07:00] VITALS: BP 100/68
--- NOTE | 2018-08-21 08:43 | General Surgery Progress Note ---
Subjective Progress Notes Subjective No complaints. No pain. Feeling much better. Physical Exam Vital Signs Date Time Temp Pulse Resp B/P (MAP) Pulse Ox O2 Delivery O2 Flow Rate FiO2 08/21/18 07:00 98.8 78 16 100/68 (79) 90 Room Air 08/19/18 03:12 1.0 Intake and Output 08/21/18 07:01 Intake Total 1220 ml Output Total 401 ml Balance 819 ml Intake Oral 1220 ml Output Urine Total 400 ml Stool Total 1 ml # Voids 2 # Bowel Movements 2 General Appearance: Alert, Awake, No Acute Distress, Afebrile GI: Soft and Non-Tender (Midline wounds are healing well with wound vac. Stoma is pink and functional.) Extremities: Warm, Perfused Result Diagram: 08/18/18 1123 08/18/18 1123 Monitor Interpretation: Normal Sinus Rhythm Assessment and Plan Problems: (1) Cancer of descending colon Status: Chronic Assessment & Plan: Descending colon cancer - s/p Kelsie procedure - evidence of good bowel function - diet as tolerated - PRN pain medications - outpatient planning for adjuvant therapy Will need Oncology consult as an outpt. Check CBC and CMP this am. Had CEA checked at [facility] several weeks ago. 08/20/18: Doing well. Continue PT/OT, wound care, stoma care education. Hopefully home in the next 2 weeks and then will refer to [facility] for adjuvant therapy. (2) Wound of abdomen Status: Acute Assessment & Plan: Midline surgical wound - continue wound vac therapy - MWF vac changes - mucocutaneous sutures removed from ostomy secondary to ulceration - no indication for abx Cont VAC, open areas healing in. Condition Stable. Time Spent: < 30 min SARWAT BLOOD MD Aug 21, 2018 08:43
[2018-08-21] MEDS: LOSARTAN POTASSIUM 50 MG TAB PO SCH (09:00)
[2018-08-21] MEDS: FAMOTIDINE 20 MG TAB PO SCH ×2 (09:29→21:30)
[2018-08-21] MEDS: NAPROXEN 500 MG TAB PO SCH ×2 (09:29→18:16)
[2018-08-21] MEDS: MINERALS CHEW SCH (09:29)
[2018-08-21] MEDS: MULTIVITAMINS CHEW SCH (09:29)
[2018-08-21] MEDS: ENOXAPARIN 40 MG/0.4ML SYR SC SCH (09:30)
[2018-08-21] MEDS: ONDANSETRON 4 MG ODT TABDP SL PRN (11:03)
[2018-08-21] MEDS: APAP/HYDROCODONE 325/5 TAB PO PRN (16:04)
[2018-08-21 17:45] VITALS: BP 101/72
--- NOTE | 2018-08-21 18:04 | NUR ---
Patient Eating in Dining Room Early in day, I discussed with patient the potential of getting up for dinner in addition to daily routine (up from 10-2). I also brought up the option to use the wheelchair to go outside, which patient seemed to think could be a good idea. At dinner time, weather was rainy and patient wanted to pivot transfer to recliner and eat in the dining room instead for a change of scenery. Patient appears to be enjoying eating out of the room and at a table. Patient also did not require any weight bearing assistance to get OOB.
[2018-08-21] MEDS: MELATONIN 3 MG TAB PO SCH (21:30)
[2018-08-22] MEDS: APAP/HYDROCODONE 325/5 TAB PO PRN ×2 (00:31→20:23)
[2018-08-22 07:11] VITALS: BP 111/77
[2018-08-22] MEDS: NAPROXEN 500 MG TAB PO SCH ×2 (08:43→17:26)
[2018-08-22] MEDS: MINERALS CHEW SCH (08:43)
[2018-08-22] MEDS: FAMOTIDINE 20 MG TAB PO SCH ×2 (08:43→20:23)
[2018-08-22] MEDS: MULTIVITAMINS CHEW SCH (08:43)
[2018-08-22] MEDS: LOSARTAN POTASSIUM 50 MG TAB PO SCH (08:44)
[2018-08-22] MEDS: ENOXAPARIN 40 MG/0.4ML SYR SC SCH (08:44)
[2018-08-22 15:40] VITALS: BP 93/62
--- NOTE | 2018-08-22 16:44 | NUR ---
Pt refusing OOB today Pt has flatly refused to get out of bed today. He has wanted to refuse to have his heels floated, but I impressed upon him his high risk of developing pressure ulcers on them and he did finally agree to it. He stated this morning that he had a discussion with PT this last week about today, about it being Father's Day, and said, "I need a break!" He is aware that he has a pressure area on his left buttock and I taught him that he needs to reposition frequently. He said he is unable to shift his weight from one side of the bed to the other. He has a large body, and staff have had to pull the draw sheet to one side of the bed in order to move him left or right for repositioning him on his side. He sometimes will yell when his feet are repositioned, states he has neuropathy, yet he could bend his knees and reposition his feet to flat on the bed when we boost him up in bed. We will continue to encourage him to reposition himself, to reposition q2 hours.
[2018-08-22] MEDS: MELATONIN 3 MG TAB PO SCH (20:23)
[2018-08-23 07:20] VITALS: BP 122/84
[2018-08-23] MEDS: MULTIVITAMINS CHEW SCH (08:31)
[2018-08-23] MEDS: MINERALS CHEW SCH (08:31)
[2018-08-23] MEDS: ENOXAPARIN 40 MG/0.4ML SYR SC SCH (08:32)
[2018-08-23] MEDS: NAPROXEN 500 MG TAB PO SCH ×2 (08:32→17:29)
[2018-08-23] MEDS: LOSARTAN POTASSIUM 50 MG TAB PO SCH (08:32)
[2018-08-23] MEDS: FAMOTIDINE 20 MG TAB PO SCH ×2 (08:32→21:09)
--- NOTE | 2018-08-23 09:16 | Gen Surgery History & Physical ---
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 He has been improving but is still weak and needs continued rehabilitation to gain strength. He is being admitted to extended care facility for continued wound care, stoma teaching, and PT/OT. History Problems: (1) HTN (hypertension) Status: Chronic (2) Cancer of descending colon Status: Chronic Comment: Descending colon cancer - s/p Kelsie procedure - evidence of good bowel function - diet as tolerated - PRN pain medications - outpatient planning for adjuvant therapy Will need Oncology consult as an outpt. Check CBC and CMP this am. Had CEA checked at [facility] several weeks ago. 08/20/18: Doing well. Continue PT/OT, wound care, stoma care education. Hopefully home in the next 2 weeks and then will refer to [facility] for adjuvant therapy. Home Meds Reported Medications Losartan Potassium (LOSARTAN POTASSIUM) 50 Mg Tablet, 1 TAB PO QDAY 06/30/18 Allergies: Coded Allergies: No Known Drug Allergies (Unverified , 01/10/16) Patient History: FH: cancer FATHER, FH: lung cancer MOTHER, Review of Systems All Systems Reviewed/Normal: Yes, Except as Noted Exam General Appearance: Alert, Awake, No Acute Distress, Afebrile Neuro: No Gross deficits Eyes: PERRLA GI: Abd Soft and Non-Tender (midline incision with multiple wounds tracking deeper treated with wound VAC, stoma is pink and functional) Extremities: Warm, Perfused Psych: Alert & Oriented X3, Appropriate Mood & Affect Assessment and Plan Problems: (1) Weakness Status: Acute Assessment & Plan: Admit to [facility] for physical therapy and occupational therapy (2) Colostomy care Status: Acute Assessment & Plan: Continue colostomy education (3) Wound of abdomen Status: Acute Assessment & Plan: Continue wound care with wound VAC (4) Cancer of descending colon Status: Chronic Condition Stable Time Spent: < 30 min Venous Thromboembolism VTE Risk Physician Assess for VTE Risk: Yes Patient's VTE Risk: Low VTE Diagnostic Test 2 Days Prior to Admit: No Antithrombotics Is Pt On Any Antithrombotics?: No SARWAT BLOOD MD Aug 23, 2018 09:16
--- NOTE | 2018-08-23 10:00 | NUR ---
Physical Therapy Impression Wound vac dressing change completed by PT due to tunneling and complicated placement near stoma site. Pt originally with wounds 1-6 along dehisced midline incision and area of previous retaining stitch with tunnel at 3 o'clock position towards midline. Specific measurements of each area listed below: 1) 0.9cmL x 0.4cmW x 2cm D- gauze packing strip 2) main wound site healed; tunnel from retaining stitch measures 2cm D 3) 0.4cm L x 0.3cm W x 0.1cm D 4) 2cm L x 1cm W x 3.8cm D- no longer communicating with wound area #5 5) 1cm L x 1.2cm W x 3 6) 0.2cm L x 0.4cm W x 3.4cm D Canister with 325ml Physical Therapy Goals 1. Pt to be CGA/Min assist for sit to/from supine transfers 2. Pt to be CGA/Min assist for sit to/from stand transfers 3. Pt to be SBA/CGA for ambulation with least restrictive device x 100' 4. Pt to ameay up/down 4 steps with rail and SBA/CGA Patient's Goals
--- NOTE | 2018-08-23 11:53 | NUR ---
Physical Therapy Impression Pt provided extra time to complete supine>sit transfer but was able to perform transfer with SBA from a mostly-flat bed and use of hand rail. Pt able to stand from the bed using the RW and CGA. Pt able to ambulate 15' using RW and CGA. Verbal cueing provided for more effective use of RW, Pt unable to integrate cueing and would benefit from continued gait training with RW. Pt has made steady progress with physical therapy and will continue to benefit from skilled PT for strengthening and functional mobility training in order to return home safely with increased independence with functional mobility and ADLs. Pt was independent with functional mobility and ADLs prior to recent medical interventions. Physical Therapy Goals 1. Pt to be CGA/Min assist for sit to/from supine transfers 2. Pt to be CGA/Min assist for sit to/from stand transfers 3. Pt to be SBA/CGA for ambulation with least restrictive device x 100' 4. Pt to ameya up/down 4 steps with rail and SBA/CGA Patient's Goals
--- NOTE | 2018-08-23 12:16 | Medical Nutrition Therapy ---
Nutrition Anthropometrics Height (Inches): 70.00 Height (Calculated Centimeters: 177.540379 Weight (Pounds): 240 Weight (Calculated Kilograms): 108.862 BMI: 34 Hx Weight Loss: Yes Anirudh Nutrition Score: Probably Inadequate Anirudh Nutrition Risk Score: 15 Dietary Referral Nutrition Risk Factors: Unplanned Loss >10lbs Nutrition Risk Comment: Physical Findings Physical Appearance: Obese BMI 30-39 Skin Appearance Skin Appearance: Edema Edema Location Modifier: Left Edema Location: Lower Extremity Type of Edema: Degree of Edema: 3+ Gastrointestinal Symptoms GI Symtoms: Change in Bowel Pattern Tube Present: Bowel Sounds: Recent Bowel Pattern: Colostomy Stool Characteristics: Brown, Soft Nutrition/Food History Good Nutritional Diagnosis Nutritional Risk Acuity 2: Abcess/Non-Healing Wound, New Colostomy Past Medical History: HTN, Colorectal cancer, Ostomy Placement, Cirrhosis Nutritional Acuity: 1-High Nutrition Diagnosis: Increased Nutrient Needs Nutrition Etiology: Physiological Causes Nutrition Problem/Etiology/Sym: large wound abdomen, wound vac, reported wt loss of 7% x 6 weeks Energy Requirement: 2926 (MSJ x AF 1.6) Protein Requirement: 130 (1.2g/kg) Fluid Requirement: 2926 (1mL/kcal) Diet Type: Diet as Tolerated SAMARIA/REG Nutrition Intervention: Between meal supplement, Vit/min support Food Likes: Beef Goulash, Gumbo, Minestrone Optional Order Time?: Yes Additional Diet Restrictions: BRING MARTÍNEZ WHEN SURGICAL CODER BRFT TRAY AT ~10:00 AND LUNCH TRAY AT ~14:00 Diet Comment To RSA: Encourage protein at every meal. Nutrition Monitoring & Eval Nutrition Monitoring: Monitor intake, wound healing, and weight. RD Patient Assessment Time: [address] Assessment Type: RD Re-Assessment Patient Nutrition Acuity: 1-High Follow Up Date: Aug 24, 2018 Nutritional Comment: 08/13/2018-Reviewed pt medical hx. Pertinent PMH includes colorectal cancer, HTN, and cirrhosis. Pt has large open incision on medial abdomen currently has wound vac in place. Spoke with Vasyl and his Triny. Discussed increased energy and protein needs related to wound healing. Was on SAMARIA and was recieving Martínez on Med/surg, reordered pt should receive at 10am and 2pm every day. Pt reported wt loss over the past 6 weeks. Pt stated his typical wt is 255 lbs and is currently 237 lbs (wt loss of 7% UBW). Encouraged pt to eat high protein foods. Will continue to monitor intakes, weight, and status of wound healing. HAYLEY 07/17 Pt cont on SAMARIA, eating 667% of small to regular portions. No nutr supplement intake reported. No new wt obtained. Pt cont 2+ edema BLE and 3+ edema to feet. Anticipate wt loss when edema resolved. Will cont to monitor and encourage high protein intake and supplment intake for wound healing. BK 08/23/18-Pt reports good appetite. Taking Martínez supplement. Does continue to have 3+ edema in RLE, and LLE. Wound is improving per nursing assessment. Colostomy output is normal. Will continue to encourage adequate intake to promote wound healing.ERIKA ZEPEDA Aug 23, 2018 11:56
--- NOTE | 2018-08-23 15:29 | NUR ---
Occupational Therapy Impression SBA supine to sit. CGAx2 ambulation x15ft with close w/c follow. Mod A sit to supine. Max Ax1 UB dressing. Pt will continue to benefit from skilled OT services to improve activity tolerance and optimize independence for ADLs. Occupational Therapy Goals 1) Pt will be Min A UB/LB dressing. 2) Pt will be Min A grooming/hygiene. 3) Pt will be Min A toilet ask. 4) Pt Suzette Index of ADLs score will improve by 2 points. 5) Pt will be Min A shower task. Patient's Goal
[2018-08-23 16:00] VITALS: BP 108/74
[2018-08-23] MEDS: MELATONIN 3 MG TAB PO SCH (21:09)
[2018-08-23] MEDS: APAP/HYDROCODONE 325/5 TAB PO PRN (21:09)
[2018-08-24 08:20] VITALS: BP 114/74
--- NOTE | 2018-08-24 08:25 | NUR ---
Pt wanting to sleep in Pt stated he wanted breakfast later, did not want to get OOB, so will give meds later this morning with breakfast.
[2018-08-24] MEDS: LOSARTAN POTASSIUM 50 MG TAB PO SCH (09:00)
[2018-08-24] MEDS: NAPROXEN 500 MG TAB PO SCH ×2 (09:18→16:59)
[2018-08-24] MEDS: FAMOTIDINE 20 MG TAB PO SCH ×2 (09:18→20:36)
[2018-08-24] MEDS: ENOXAPARIN 40 MG/0.4ML SYR SC SCH (09:18)
[2018-08-24] MEDS: MULTIVITAMINS CHEW SCH (09:19)
[2018-08-24] MEDS: MINERALS CHEW SCH (09:19)
--- NOTE | 2018-08-24 10:00 | NUR ---
14-day MDS completed with pt. C: 15, D: 03, E: no concerns, Q: plans to DC to community, no referrals made yet. Will continue to follow for DC plans.
--- NOTE | 2018-08-24 10:19 | NUR ---
Physical Therapy Impression Pt up in recliner upon PT arrival and notes that he plans to eat breakfast in the dining room. has set tray up at table in closest family eating area. Pt ambulated with W/C follow, from recliner to doorway of room with CGA. Pt then requested to sit and rest. Pt propeled to entry way of dining area and was then agreeable to ambulate 8' across carpeting to reach table, then with SBA. Pt would benefit from further therapy to enable return to prior level of function for safe and indep household mobility as well as improved tolerance for repeated activities throughout the day. Pt has improved in both motivation and abilities since admission, however, not yet at a level that would be considered safe to discharge home. Wound care continues twice weekly with wound vac dressing changes to address dehisced incision line. This is also improving gradually. Physical Therapy Goals 1. Pt to be CGA/Min assist for sit to/from supine transfers 2. Pt to be CGA/Min assist for sit to/from stand transfers 3. Pt to be SBA/CGA for ambulation with least restrictive device x 100' 4. Pt to ameya up/down 4 steps with rail and SBA/CGA Patient's Goals
--- NOTE | 2018-08-24 14:56 | NUR ---
Occupational Therapy Impression Initiated tx with care conference, spouse and pt present. Discussed POC and appropriate goals to work towards. Min A sit<>stand from chair. CGA ambulation 15ft with RW. CGA sit<>standsx2 from bed. Standing tolerance x1 minute 30seconds with bilateral UEs supporting on RW. Pt then fatigued requiring seated rest break. Oral care seated EOB with set-up. Mod A sit<>supine. Pt progressing well towards goals and will continue to benefit from skilled OT services to optimize independence for ADLs and improve activity tolerance in order to promote a safe discharge home. Occupational Therapy Goals 1) Pt will be Min A UB/LB dressing. 2) Pt will be Min A grooming/hygiene. 3) Pt will be Min A toilet ask. 4) Pt Suzette Index of ADLs score will improve by 2 points. 5) Pt will be Min A shower task. Patient's Goal
[2018-08-24] MEDS: ONDANSETRON 4 MG ODT TABDP SL PRN (18:49)
[2018-08-24 19:23] VITALS: BP 118/70
[2018-08-24] MEDS: MELATONIN 3 MG TAB PO SCH (20:36)
[2018-08-25 09:00] VITALS: BP 101/64
[2018-08-25] MEDS: LOSARTAN POTASSIUM 50 MG TAB PO SCH (09:00)
[2018-08-25] MEDS: MULTIVITAMINS CHEW SCH (09:20)
[2018-08-25] MEDS: FAMOTIDINE 20 MG TAB PO SCH ×2 (09:20→20:48)
[2018-08-25] MEDS: ENOXAPARIN 40 MG/0.4ML SYR SC SCH (09:20)
[2018-08-25] MEDS: MINERALS CHEW SCH (09:20)
[2018-08-25] MEDS: NAPROXEN 500 MG TAB PO SCH ×2 (09:20→16:45)
[2018-08-25] MEDS: ONDANSETRON 4 MG ODT TABDP SL PRN ×2 (10:05→16:45)
--- NOTE | 2018-08-25 12:57 | NUR ---
Occupational Therapy Impression Patient participated well in session with self care performance. Patient states that he was able to accomplish more today than he has. Patient does require a significant amount of time in order to complete activities. Occupational Therapy Goals 1) Pt will be Min A UB/LB dressing. 2) Pt will be Min A grooming/hygiene. 3) Pt will be Min A toilet ask. 4) Pt Suzette Index of ADLs score will improve by 2 points. 5) Pt will be Min A shower task. Patient's Goal
[2018-08-25] MEDS: APAP/HYDROCODONE 325/5 TAB PO PRN (16:45)
[2018-08-25 17:08] VITALS: BP 110/66
[2018-08-25] MEDS: MELATONIN 3 MG TAB PO SCH (20:48)
[2018-08-26 08:20] VITALS: BP 106/60
[2018-08-26] MEDS: LOSARTAN POTASSIUM 50 MG TAB PO SCH (09:00)
[2018-08-26] MEDS: MINERALS CHEW SCH (09:23)
[2018-08-26] MEDS: FAMOTIDINE 20 MG TAB PO SCH ×2 (09:23→20:34)
[2018-08-26] MEDS: MULTIVITAMINS CHEW SCH (09:23)
[2018-08-26] MEDS: NAPROXEN 500 MG TAB PO SCH ×2 (09:23→17:31)
[2018-08-26] MEDS: ENOXAPARIN 40 MG/0.4ML SYR SC SCH (09:23)
[2018-08-26] MEDS: ONDANSETRON 4 MG ODT TABDP SL PRN (10:04)
--- NOTE | 2018-08-26 11:02 | NUR ---
Occupational Therapy Impression Spouse and pt engaged in discussion regarding possible adaptive equipment needs (including bed rail, toilet safety frame, extended tub bench, and walker). Plan for home evaluation Thursday at 10:30am with spouse to determine appropriate recommendations. Pt adamantly refusing to get out of chair this date due to nausea. Nursing agreeable to contact OT this morning if pt feels better and demonstrates willingness to engage in ADLs/functional mobility. Continue POC. Occupational Therapy Goals 1) Pt will be Min A UB/LB dressing. 2) Pt will be Min A grooming/hygiene. 3) Pt will be Min A toilet ask. 4) Pt Suzette Index of ADLs score will improve by 2 points. 5) Pt will be Min A shower task. Patient's Goal
--- NOTE | 2018-08-26 11:18 | OT ECF NOTE ---
Type of Note: 2-wekk progress note Primary Medical Diagnosis: Generalized weakness s/p recent complicated surgical history for colonic obstruction and descending colon cancer. Patient has a wound vac and recent colostomy Occupational Therapy Evaluation Date: 08/12/18 SUBJECTIVE: Prior Hospitalization: [facility] 06/30/18-07/01/18. Transferred to [facility] in [place] 07/01/18-July 2018. Pt had been at [facility] for skilled care about one week. Then, [facility] medical 08/09/18-. Prior Level of Function: Independent with all ADLs/IADLs. Occasionally, ambulating with a cane. 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 Prior Living Status: Single level house Spouse Assist by family Community Services: No known needs Home Accessibility: Stairs without rails-Two steps into home. One step down into bathroom. All needs on one level Tub/shower combination Spouse reports narrow doorways. May need to side step with RW into home office. Equipment Owned: Cane Medical Complications/Past Medical History: Please refer to EMR Psychosocial Support: Supportive spouse Pain Scale (0-10): None reported at time of tx 08/26/18 Hand Dominance: Right OBJECTIVE: Strength: MMT: Right Left Shoulder Flexion [*] [*] Elbow Flexion [*] [*] Wrist Extension [*] [*] Furnace Converter [*] [*] (5= normal, 4= good, 3= fair, 2= poor, 1= trace) ROM: Right, Moderately limited Sensation: No paraesthesia reported Functional Transfer: Assistive Device: Rolling walker Transfer Ability: CGA. Ambulation x35ft. ADL: Upper body dressing: Assistive device: Spouse plans to assist with dressing at home Upper body dressing ability: Moderate-Maximum assistance Lower body dressing: Assistive device: Spouse plans to assist with dressing at home Lower body dressing ability: Maximum assistance Toileting: Assistive device: Spouse assists Toileting ability: Maximum assistance Grooming/hygiene: Assistive device: Seated Grooming ability: Set-up Bathing: Assistive device: Shower chair Bathing ability: Maximum assistance Standardized Assessment: Suzette Index of Activities of Daily Livin/20 upon initial evaluation (08/12/18). 07/26 at 2-week progress note (08/26/18). 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 Pt has progressed from use of EZ lift with 2 assist, to ambulating with one assist and RW. He continues to require significant assist for engagement in ADLs. Vasyl will continue to benefit from skilled OT services to optimize independence for engagement in ADLs, improve activity tolerance for return to independence with IADLs, and decrease caregiver burden. Problem List/Current Limitations: Decreased activity tolerance Generalized weakness Lack of motivation Lack of initiation Short Term Goals: 1) Pt will be Min A UB/LB dressing. Progressing towards 2) Pt will be Min A grooming/hygiene. Progressing towards 3) Pt will be Min A toilet task. Progressing towards 4) Pt Suzette Index of ADLs score will improve by 2 points. Goal met. 5) Pt will be Min A shower task. Progressing towards Jail Goals: Return home with home health services and assist from spouse Patient Goals: Return home Rehabilitation Prognosis: Fair Barriers to Discharge: Patient engagement and motivation, Education and adjustment to onset of medical needs PLAN: The patient will benefit from skilled occupational therapy services 5 times per week for 2 weeks including: Ther ex ADL training Safety training Ther act IADL training Transfer training Adaptive equip training Bed mobility Energy conservation Thank you for this referral. If you have any questions, concerns, or comments about this report or plan, please contact me at . Jessica Parra MS, OTR/L Occupational Therapist HARRY
[2018-08-26] MEDS: APAP/HYDROCODONE 325/5 TAB PO PRN (13:53)
--- NOTE | 2018-08-26 15:15 | NUR ---
Physical Therapy Impression Upon PT arrival pt notes that he is unhappy as he has "run my off" and declines to address previously set plan of transfers to/from lower surface of sofa. Pt states that he will address this with therapist tomorrow instead. Pt was agreeable to work on log roll and supine to/from sit transfer to access bed for wound vac dressing change. Pt completed this twice, with a sitting rest break mid-way through dressing change due to symptoms of restless legs. Goal setting for next week addressed as well. Pt agreeable to progress to ambulation trng with 4WW to facilitate seated rest breaks during functional distance ambulation as needed. Wound vac dressing change completed with depth of wounds improving greatly. Dimensions are listed below: 1) 0.9cm L x 0.4cm W x 2cm D 2) tunnel at 3 o'clock at R) side of midline measures 1.6cm D 3) 0.4cm L x 0.3cm W x 0.1cm D 4) 1.5cm L x 0.5cm W x 2.8cm D 5) 1cm L x 1.2cm W x 2cm D 6) 0.2cm L x 0.4cm W x 3cm D Physical Therapy Goals 1. Pt to be CGA/Min assist for sit to/from supine transfers 2. Pt to be CGA/Min assist for sit to/from stand transfers 3. Pt to be SBA/CGA for ambulation with least restrictive device x 100' 4. Pt to ameya up/down 4 steps with rail and SBA/CGA Patient's Goals
[2018-08-26 17:35] VITALS: BP 122/85
--- NOTE | 2018-08-26 20:09 | NUR ---
ostomy and wound care Wound vac dressing changed by PT. Ostomy wafer and bag changed by this nurse. encouraged pt to get OOB at dinner time. pt said he would think about it but when dinner came, pt reported he was "too comfortable" and did not want to get OOB. came in this jazzy and she is frustrated with pt's lack of participation in ostomy care and getting OOB. she is concerned that pt is "giving up." She verbalizes that if pt wants to forgo any chemo or further Tx she will support this if he states that this is his wish.
[2018-08-26] MEDS: MELATONIN 3 MG TAB PO SCH (20:34)
[2018-08-27 06:12] LABS: PLATELET COUNT, AUTOMATED 363 K/uL (150-450)
[2018-08-27 08:25] VITALS: BP 123/72
[2018-08-27] MEDS: LOSARTAN POTASSIUM 50 MG TAB PO SCH (09:00)
[2018-08-27 09:23] VITALS: BP 94/57
[2018-08-27] MEDS: FAMOTIDINE 20 MG TAB PO SCH ×2 (09:25→21:19)
[2018-08-27] MEDS: ENOXAPARIN 40 MG/0.4ML SYR SC SCH (09:25)
[2018-08-27] MEDS: NAPROXEN 500 MG TAB PO SCH ×2 (09:25→19:51)
[2018-08-27] MEDS: MULTIVITAMINS CHEW SCH (09:25)
[2018-08-27] MEDS: MINERALS CHEW SCH (09:25)
[2018-08-27] MEDS: APAP/HYDROCODONE 325/5 TAB PO PRN ×2 (09:25→22:26)
--- NOTE | 2018-08-27 10:46 | NUR ---
Occupational Therapy Impression Pt alert, agreeable to OT tx this date. Pt encouraged about progress and feeling improved this date. CGA ambulation x20ft with RW to toilet, completing one turn and then ambulating x10ft. Pt then requiring rest break. Then tolerating ambulating x10ft back to chair. Continue POC. Occupational Therapy Goals 1) Pt will be Min A UB/LB dressing. Progressing towards 2) Pt will be Min A grooming/hygiene. Progressing towards 3) Pt will be Min A toilet task. Progressing towards 4) Pt Suzette Index of ADLs score will improve by 2 points. Goal met. 5) Pt will be Min A shower task. Progressing towards Patient's Goal
--- NOTE | 2018-08-27 14:00 | General Surgery Progress Note ---
Subjective Progress Notes Subjective Patient without any complaints today. He was having nausea issues but currently he is without nausea. Physical Exam Vital Signs Date Time Temp Pulse Resp B/P (MAP) Pulse Ox O2 Delivery O2 Flow Rate FiO2 08/27/18 09:23 94/57 (69) 08/27/18 08:25 98.0 68 18 94 Room Air Intake and Output 08/27/18 07:01 Intake Total 480 ml Output Total 815 ml Balance -335 ml Intake Oral 480 ml Output Urine Total 540 ml Stool Total 275 ml # Bowel Movements 1 General Appearance: Alert, Awake, No Acute Distress, Afebrile GI: Soft and Non-Tender (wound VAC is in place with a good seal, stoma is pink and functional) Extremities: Warm, Perfused Result Diagram: 08/27/1852708/27/18527 Monitor Interpretation: Normal Sinus Rhythm Assessment and Plan Problems: (1) Weakness Status: Acute Assessment & Plan: Admit to [facility] for physical therapy and occupational therapy - s/p Kelsie procedure - evidence of good bowel function - diet as tolerated - PRN pain medications - outpatient planning for adjuvant therapy Will need Oncology consult as an outpt. Check CBC and CMP this am. Had CEA checked at [facility] several weeks ago. 08/20/18: Doing well. Continue PT/OT, wound care, stoma care education. Hopefully home in the next 2 weeks and then will refer to [facility] for adjuvant therapy. 08/27/18: Check some labs this morning due to nausea yesterday. Labs are concerning for increasing alkaline phosphatase and slightly increasing transamin ases. Bilirubin is normal. Previous CT completed 2 months ago revealed gallstones. The LFT changes are certainly concerning for metastatic disease but also could be due to his gallstones, possibly passing stones through his common bile duct. We'll get a right upper quadrant ultrasound and a CT scan of his chest abdomen and pelvis to look for evidence of biliary disease or metastatic lesions to his bone or liver. I have explained this to him and he seemed somewhat deflated after telling him this but he seems to understand and is agreeable with this plan. (2) Colostomy care Status: Acute Assessment & Plan: Continue colostomy education (3) Wound of abdomen Status: Acute Assessment & Plan: Continue wound care with wound VAC (4) Cancer of descending colon Status: Chronic Condition Stable Time Spent: < 30 min SARWAT BLOOD MD Aug 27, 2018 14:00
[2018-08-27] MEDS ORDERED: IOPAMIDOL 76% 100 ML INFUS BTL 100 ML ONE (15:36)
--- NOTE | 2018-08-27 15:52 | NUR ---
Physical Therapy Impression Attempted to see Pt at 1400 scheduled time. Nursing attempting to start IV with multiple new tests to be performed this PM. Pt requests to hold PT today, this PT is in agreement. Will attempt on Thursday. Wound vac dressing change completed with depth of wounds improving greatly. Dimensions are listed below: 1) 0.9cm L x 0.4cm W x 2cm D 2) tunnel at 3 o'clock at R) side of midline measures 1.6cm D 3) 0.4cm L x 0.3cm W x 0.1cm D 4) 1.5cm L x 0.5cm W x 2.8cm D 5) 1cm L x 1.2cm W x 2cm D 6) 0.2cm L x 0.4cm W x 3cm D Physical Therapy Goals 1. Pt to be CGA/Min assist for sit to/from supine transfers 2. Pt to be CGA/Min assist for sit to/from stand transfers 3. Pt to be SBA/CGA for ambulation with least restrictive device x 100' 4. Pt to ameya up/down 4 steps with rail and SBA/CGA Patient's Goals
--- NOTE | 2018-08-27 15:59 | PT ECF NOTE ---
Type of Note: Progress Note Primary Medical Diagnosis: Generalized weakness s/p recent complicated surgical history for colonic obstruction and descending colon cancer. Patient has a wound vac and recent colostomy Physical Therapy Mobility and Wound Vac Evaluation Date: 08/13/18 SUBJECTIVE: Prior Hospitalization: [facility] 06/30/18-07/01/18. Transferred to [facility] in [place] 07/01/18-July 2018. Pt had been at [facility] for skilled care about one week. Then, [facility] medical 08/09/18-08/12/18. Prior Level of Function: Independent with all ADLs/IADLs. Occasionally, ambulating with a cane. 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 Prior Living Status: Single level house Spouse Assist by family Community Services: No known needs Home Accessibility: Stairs without rails-Two steps into home. One step down into bathroom. All needs on one level Tub/shower combination Spouse reports narrow doorways. May need to side step with RW into home office. Equipment Owned: Cane Medical Complications/Past Medical History: Please refer to EMR Psychosocial Support: Supportive spouse Pain Scale (0-10): None reported at time of evaluation Hand Dominance: Right OBJECTIVE: Other Neuro findings: appears to be WFL Bed Mobility: Min A log roll technique Assistive device: Bed rail; Head of bed flat Transfers: Min A/CGA Assistive Device: RW Gait: SBA/CGA x24' Assistive device: RW Other Objective Measures: Please refer to wound care treat note for details related to wound vac application for midline dehisced incision. ASSESSMENT: Pt has made slow, steady progress with functional mobility. Pt will continue to benefit from skilled PT for strengthening and functional mobility training in order to return to independent prior level of function. Problem List/Current Limitations: Pain, Decreased activity ameya, Decreased strength, Decreased balance, Generalized weakness, Decreased initiation Lack of motivation Short Term Goals/UPDATED: 1. Pt to be SBA assist for sit to/from supine transfers 2. Pt to be SBA assist for sit to/from stand transfers 3. Pt to be SBA for ambulation with least restrictive device x 100' 4. Pt to ameya up/down 4 steps with rail and SBA/CGA 5. Pt to be able to manage home unit wound vac safely with base of wound demonstrating improved granulation and gradual closure of base. Fpc Goals: Return home with [facility] services for mobility and wound vac management. Patient Goals: Return home Rehabilitation Prognosis: Fair Barriers for Discharge: Pt's level of engagement in basic life skills and participation in therapeutic activities to regain strength; adjustment to sudden onset of life altering medical situation. PLAN: The patient will benefit from skilled physical therapy services 5 times per week for 2 weeks including: Therapeutic Exercise, Therapeutic Activities Transfer Training, Gait Training, Stair Training, ADL's, Safety Training, Wound Care, Pt/Caregiver Training, Bed Mobility Thank you for this referral. If you have any questions, concerns, or comments about this report or plan, please contact me at . Jeane Mauricio, PT, DPT, GCS MTDD
[2018-08-27 17:40] VITALS: BP 110/70
--- NOTE | 2018-08-27 18:30 | RADIOLOGY IMAGING REPORT ---
FACILITY: [facility] PATIENT NAME: Felipe Coates : 1945 MR: [id number] V: [id number] EXAM DATE: ORDERING PHYSICIAN: SARWAT BLOOD TECHNOLOGIST: Location: [facility] [place] Patient: Felipe Coates : 1945 Visit/Account:[id number] Date of Sevice: 08/27/2018 CT CHEST ABDOMEN PELVIS W & W/O HISTORY: Colon cancer, increasing liver enzymes TECHNIQUE: CT chest, abdomen and pelvis with and without intravenous contrast. Contiguous helical im ages was performed from the lung apices to the symphysis pubis. One of the following dose optimization techniques was utilized in the performance of this exam: Autom ated exposure control; adjustment of the mA and/or kV according to the patient's size; or use of an i terative reconstruction technique. Specific details can be referenced in the facility's radiology C T exam operational policy. CONTRAST: 75 cc of Isovue-370 COMPARISON: 06/30/2018 FINDINGS: CHEST: Heart/vessels: There is a small ascending thoracic aneurysm measuring 4.2 cm maximally. Calcificatio n of the aortic valve and coronary vessels is noted. Mediastinum: Negative. Lymph nodes: Negative. Lungs/pleura: There are small to moderate pleural effusions with associated compressive atelectasis. Bones/soft tissues: Anterior flowing osteophytes suggesting diffuse idiopathic skeletal hyperostosis . ABDOMEN/PELVIS: Hepatobiliary: There appears to be fatty infiltration of the liver. Gallstones are noted in the gall bladder and there is now a 4 mm stone in the distal common bile duct. Gallbladder is slightly distend ed. Common hepatic duct measures 5 mm. Prior exam demonstrated pneumobilia which is no longer visuali zed and query prior sphincterotomy. No definite hepatic metastatic disease. Spleen: Negative. Adrenals: Negative. Kidneys/: Small nonobstructing stones are noted left kidney measuring up to 5 mm. Pancreas: Negative. GI: Postoperative changes are noted from resection of the patient's colon mass and a diverting colos shruthi. There is a long Fried's pouch with diverticulosis. Vessels/spaces/nodes: Infiltration of the omentum and mesentery is likely postoperative. Bones/soft tissues: Interval development of a 6 x 4 cm right iliacus muscle hematoma. Infiltration o f the subcutaneous tissues implies 3rd spacing. The osseous structures demonstrate anterior flowing o steophytes suggestive of diffuse hepatocellular hyperostosis. IMPRESSION: 1. Postoperative changes are noted from resection of the patient's colon mass with a diverting colos shruthi and a long Fried's pouch. Infiltration of the omentum and mesentery is likely postoperative. 2. 6 x 4 cm right iliacus muscle hematoma new from prior exam. 3. 4 mm stone in the distal common bile duct potentially accounting for the elevated liver enzymes. G allstones are also noted in gallbladder and the gallbladder is mildly distended. If there is concern for cholecystitis, consider an ultrasound. 4. Small to moderate bilateral pleural effusions with compressive atelectasis. 5. Other chronic findings are described above. Results were called to SARWAT BLOOD at 08/27/2018 6:25 PM. Report Dictated By: Kieran Lombardo MD at 08/27/2018 5:51 PM Report E-Signed By: Kieran Lombardo MD at 08/27/2018 6:25 PM WSN:[id number]
[2018-08-27] MEDS: MELATONIN 3 MG TAB PO SCH (21:19)
--- NOTE | 2018-08-28 02:21 | RADIOLOGY IMAGING REPORT ---
FACILITY: [facility] PATIENT NAME: Felipe Coates : 1945 MR: [id number] V: [id number] EXAM DATE: ORDERING PHYSICIAN: SARWAT BLOOD TECHNOLOGIST: Location: [facility] Patient: Felipe Coates : 1945 Visit/Account:[id number] Date of Sevice: 08/27/2018 EXAMINATION: LIMITED ABDOMINAL ULTRASOUND DATE: 08/27/2018 12:55 PM INDICATION: Gallstones, elevated alkaline phosphatase. TECHNIQUE: King scale, color and pulsed Doppler ultrasound images of the right upper quadrant were ob tained. COMPARISON: Same-day CT chest, abdomen and pelvis, ultrasound 12/01/2017 and others. FINDINGS: Pancreas: The pancreas is suboptimally visualized in the tail. There is no significant abnormality in the visualized portion. Aorta and IVC: The imaged abdominal aorta and IVC are patent. Liver: The liver shows diffusely increased parenchymal echogenicity with coarsened echotexture. The r ight hepatic lobe measures 15 cm craniocaudal, which is within normal limits. There is no definite fo keysha lesion in the liver. The main portal vein is patent with hepatopedal flow. Bile ducts: The intrahepatic bile ducts are not dilated. The common bile duct measures 5 mm in diamet er, which is normal. Calculus seen in the common bile duct on CT is not well demonstrated. Gallbladder: The gall bladder is partially distended. It is thick-walled and contains probable bilia ry sludge. Posteriorly shadowing calculi near the gallbladder neck better demonstrated on CT. Kidney: The right kidney measures 11.6 x 6.6 x 6.6 cm. The parenchymal echogenicity and thickness leesa ear within normal range. No focal lesion is demonstrated. No hydronephrosis. No ascites. IMPRESSION: 1. Thick-walled gallbladder containing sludge, as well as calculi near the gallbladder neck as seen on CT. Correlate with any suspicion of cholecystitis. HIDA scan could be performed to evaluate for cystic duct obstruction if indicated. 2. Calculus seen in the common bile duct on CT is not well demonstrated. 3. Suspected hepatic steatosis as previously seen. Report Dictated By: Rashard Lazcano MD at 08/28/2018 2:06 AM Report E-Signed By: Rashard Lazcano MD at 08/28/2018 2:16 AM WSN:[id number]
[2018-08-28 08:09] VITALS: BP 111/74
[2018-08-28] MEDS: MULTIVITAMINS CHEW SCH (08:57)
[2018-08-28] MEDS: MINERALS CHEW SCH (08:57)
[2018-08-28] MEDS: LOSARTAN POTASSIUM 50 MG TAB PO SCH (08:58)
[2018-08-28] MEDS: NAPROXEN 500 MG TAB PO SCH ×2 (08:58→17:20)
[2018-08-28] MEDS: FAMOTIDINE 20 MG TAB PO SCH ×2 (08:58→20:22)
[2018-08-28] MEDS: ENOXAPARIN 40 MG/0.4ML SYR SC SCH (08:59)
--- NOTE | 2018-08-28 12:00 | NUR ---
1200 Patient c/o nausea , and given zofran, feels very full, no bowel sounds heard. Dr. Blevins suggested that i call Dr. Harmon. Dr Harmon arrived on the unit as I was looking up her telephone number. Orders received for labs in am, doctor suggested that patient drink more and try some prune juice.1300 feeling better likes having a warm blanket on her stomach make it feel good. 1630 patient is passing gas, now, BS heard in all 4Q.
[2018-08-28] MEDS: ONDANSETRON 4 MG ODT TABDP SL PRN ×2 (12:01→22:10)
--- NOTE | 2018-08-28 12:26 | General Surgery Progress Note ---
Subjective Progress Notes Subjective no complaints of abdominal pain Physical Exam Vital Signs Date Time Temp Pulse Resp B/P (MAP) Pulse Ox O2 Delivery O2 Flow Rate FiO2 08/28/18 09:00 91 Room Air 1.0 08/28/18 08:09 97.5 73 15 111/74 (86) Intake and Output 08/28/18 07:01 Intake Total 500 ml Output Total 1150 ml Balance -650 ml Intake Oral 500 ml Output Urine Total 1150 ml # Voids 2 # Bowel Movements 0 General Appearance: Alert, Awake, No Acute Distress, Afebrile Neuro: No Gross deficits Cardiovascular: Normal Rhythm & Peripheral Pulses Respiratory: No Respiratory Distress, Clear to Auscultation GI: Soft and Non-Tender Integumentary: Skin Intact without Lesion / Mass Psych: Alert & Oriented X3, Appropriate Mood & Affect Result Diagram: 08/27/1852708/27/18527 Monitor Interpretation: Normal Sinus Rhythm Assessment and Plan Problems: (1) Weakness Status: Acute Assessment & Plan: Admit to [facility] for physical therapy and occupational therapy - s/p Kelsie procedure - evidence of good bowel function - diet as tolerated - PRN pain medications - outpatient planning for adjuvant therapy Will need Oncology consult as an outpt. Check CBC and CMP this am. Had CEA checked at [facility] several weeks ago. 08/20/18: Doing well. Continue PT/OT, wound care, stoma care education. Hopefully home in the next 2 weeks and then will refer to [facility] for adjuvant therapy. 08/27/18: Check some labs this morning due to nausea yesterday. Labs are concerning for increasing alkaline phosphatase and slightly increasing transaminases. Bilirubin is normal. Previous CT completed 2 months ago revealed gallstones. The LFT changes are certainly concerning for metastatic disease but also could be due to his gallstones, possibly passing stones through his common bile duct. We'll get a right upper quadrant ultrasound and a CT scan of his chest abdomen and pelvis to look for evidence of biliary disease or metastatic lesions to his bone or liver. I have explained this to him and he seemed somewhat deflated after telling him this but he seems to understand and is agreeable with this plan. 08/28/18: Profound debilitation improving. ABD CT and ABD US reviewed with pt/ and Dr Tanner last evening. Suspect he will pass the small distal CBD stone. Will cont diet as ameya and trend LFTs. (2) Colostomy care Status: Acute Assessment & Plan: Continue colostomy education (3) Wound of abdomen Status: Acute Assessment & Plan: Continue wound care with wound VAC (4) Cancer of descending colon Status: Chronic Time Spent: > 30 min ARIAN VASQUEZ MD Aug 28, 2018 12:26
[2018-08-28 15:39] VITALS: BP 107/71
[2018-08-28] MEDS: MELATONIN 3 MG TAB PO SCH (20:22)
[2018-08-28] MEDS: APAP/HYDROCODONE 325/5 TAB PO PRN (20:22)
[2018-08-29 06:36] LABS: PLATELET COUNT, AUTOMATED 329 K/uL (150-450)
[2018-08-29 07:54] VITALS: BP 98/71
[2018-08-29] MEDS: LOSARTAN POTASSIUM 50 MG TAB PO SCH (09:00)
[2018-08-29] MEDS: FAMOTIDINE 20 MG TAB PO SCH ×2 (09:16→22:01)
[2018-08-29] MEDS: NAPROXEN 500 MG TAB PO SCH ×2 (09:16→17:44)
[2018-08-29] MEDS: MULTIVITAMINS CHEW SCH (09:16)
[2018-08-29] MEDS: MINERALS CHEW SCH (09:16)
[2018-08-29] MEDS: ENOXAPARIN 40 MG/0.4ML SYR SC SCH (09:17)
--- NOTE | 2018-08-29 11:13 | General Surgery Progress Note ---
Subjective Progress Notes Subjective no complaints. Up in chair. Ameya diet. Physical Exam Vital Signs Date Time Temp Pulse Resp B/P (MAP) Pulse Ox O2 Delivery O2 Flow Rate FiO2 08/29/18 07:54 97.5 73 16 98/71 (80) 90 Room Air 08/28/18 09:00 1.0 Intake and Output 08/29/18 07:01 Intake Total 236 ml Output Total 1225 ml Balance -989 ml Intake Oral 236 ml Output Urine Total 1225 ml # Voids 4 # Bowel Movements 0 General Appearance: Alert, Awake, No Acute Distress, Afebrile Respiratory: No Respiratory Distress, Clear to Auscultation GI: Soft and Non-Tender, Other (VAC intact, + stoma output) Integumentary: Skin Intact without Lesion / Mass Psych: Alert & Oriented X3, Appropriate Mood & Affect Result Diagram: 08/29/1861808/29/18618 Monitor Interpretation: Normal Sinus Rhythm Assessment and Plan Problems: (1) Weakness Status: Acute Assessment & Plan: Admit to [facility] for physical therapy and occupational therapy - s/p Kelsie procedure - evidence of good bowel function - diet as tolerated - PRN pain medications - outpatient planning for adjuvant therapy Will need Oncology consult as an outpt. Check CBC and CMP this am. Had CEA checked at [facility] several weeks ago. 08/20/18: Doing well. Continue PT/OT, wound care, stoma care education. Hopefully home in the next 2 weeks and then will refer to [facility] for adjuvant therapy. 08/27/18: Check some labs this morning due to nausea yesterday. Labs are conc erning for increasing alkaline phosphatase and slightly increasing transaminases. Bilirubin is normal. Previous CT completed 2 months ago revealed gallstones. The LFT changes are certainly concerning for metastatic disease but also could be due to his gallstones, possibly passing stones through his common bile duct. We'll get a right upper quadrant ultrasound and a CT scan of his chest abdomen and pelvis to look for evidence of biliary disease or metastatic lesions to his bone or liver. I have explained this to him and he seemed somewhat deflated after telling him this but he seems to understand and is agreeable with this plan. 08/28/18: Profound debilitation improving. ABD CT and ABD US reviewed with pt/ and Dr Tanner last evening. Suspect he will pass the small distal CBD stone. Will cont diet as ameya and trend LFTs. 08/29/18: LFTs cont to rise. In lieu of no GI symptoms will continue to follow. If TB rises further, may need to consider transfer to Dr Connelly for ERCP at [facility] (2) Colostomy care Status: Acute Assessment & Plan: Continue colostomy education (3) Wound of abdomen Status: Acute Assessment & Plan: Continue wound care with wound VAC (4) Cancer of descending colon Status: Chronic Time Spent: > 30 min ARIAN VASQUEZ MD Aug 29, 2018 11:13
[2018-08-29 15:20] VITALS: BP 113/78
--- NOTE | 2018-08-29 15:56 | NUR ---
Dr. Harmon visited pt Dr. Kieran Harmon came to the unit and discussed labs with patient at approximately 1055 this morning. She has ordered more labs to be drawn tomorrow morning, and cautioned patient that he might have to be transferred to [facility] to have ERCP done if liver enzymes are still elevated. Pt indicated that he understood.
[2018-08-29] MEDS: APAP/HYDROCODONE 325/5 TAB PO PRN (22:01)
[2018-08-29] MEDS: MELATONIN 3 MG TAB PO SCH (22:01)
[2018-08-30 05:46] LABS: PLATELET COUNT, AUTOMATED 308 K/uL (150-450)
[2018-08-30 07:50] VITALS: BP 117/72
[2018-08-30] MEDS: LOSARTAN POTASSIUM 50 MG TAB PO SCH (09:00)
[2018-08-30] MEDS: FAMOTIDINE 20 MG TAB PO SCH ×2 (09:27→20:32)
[2018-08-30] MEDS: NAPROXEN 500 MG TAB PO SCH ×2 (09:27→16:28)
[2018-08-30] MEDS: ENOXAPARIN 40 MG/0.4ML SYR SC SCH (09:27)
[2018-08-30] MEDS: MULTIVITAMINS CHEW SCH (09:28)
[2018-08-30] MEDS: MINERALS CHEW SCH (09:28)
--- NOTE | 2018-08-30 09:34 | General Surgery Progress Note ---
Subjective Progress Notes Subjective no complaints. Wants to go home this week. Up in chair. Physical Exam Vital Signs Date Time Temp Pulse Resp B/P (MAP) Pulse Ox O2 Delivery O2 Flow Rate FiO2 08/30/18 07:50 97.9 76 12 117/72 (87) 91 Room Air 08/28/18 09:00 1.0 Intake and Output 08/30/18 07:01 Intake Total 240 ml Output Total 1300 ml Balance -1060 ml Intake Oral 240 ml Output Urine Total 1200 ml Stool Total 100 ml # Voids 4 General Appearance: Alert, Awake, No Acute Distress, Afebrile Neuro: No Gross deficits Cardiovascular: Normal Rhythm & Peripheral Pulses Respiratory: No Respiratory Distress, Clear to Auscultation GI: Soft and Non-Tender, Other (+ stoma output, VAC intact) Integumentary: Skin Intact without Lesion / Mass Psych: Alert & Oriented X3, Appropriate Mood & Affect Result Diagram: 08/30/1852608/30/18526 Monitor Interpretation: Normal Sinus Rhythm Assessment and Plan Problems: (1) Weakness Status: Acute Assessment & Plan: Admit to [facility] for physical therapy and occupational therapy - s/p Kelsie procedure - evidence of good bowel function - diet as tolerated - PRN pain medications - outpatient planning for adjuvant therapy Will need Oncology consult as an outpt. Check CBC and CMP this am. Had CEA checked at [facility] several weeks ago. 08/20/18: Doing well. Continue PT/OT, wound care, stoma care education. Hopefully home in the next 2 weeks and then will refer to [facility] for adjuvant therapy. 08/27/18: Check some labs this morning due to nausea yesterday. Labs are concerning for increasing alkaline phosphatase and slightly increasing transaminases. Bilirubin is normal. Previous CT completed 2 months ago revealed gallstones. The LFT changes are certainly concerning for metastatic disease but also could be due to his gallstones, possibly passing stones through his common bile duct. We'll get a right upper quadrant ultrasound and a CT scan of his chest abdomen and pelvis to look for evidence of biliary disease or metastatic lesions to his bone or liver. I have explained this to him and he seemed somewhat deflated after telling him this but he seems to understand and is agreeable with this plan. 08/28/18: Profound debilitation improving. ABD CT and ABD US reviewed with pt/ and Dr Tanner last evening. Suspect he will pass the small distal CBD stone. Will cont diet as ameya and trend LFTs. 08/29/18: LFTs cont to rise. In lieu of no GI symptoms will continue to follow. If TB rises further, may need to consider transfer to Dr Connelly for ERCP at [facility]. (2) Colostomy care Status: Acute Assessment & Plan: Continue colostomy education (3) Wound of abdomen Status: Acute Assessment & Plan: Continue wound care with wound VAC (4) Cancer of descending colon Status: Chronic Assessment & Plan: CEA noted, up slightly. Need to see Oncology as an outpt. (5) Choledocholithiasis Status: Acute Assessment & Plan: LFTs improved a bit today. Will repeat for trend in am. Hold on referral to Dr Connelly for ERCP at this point. ARIAN VASQUEZ MD Aug 30, 2018 09:34
--- NOTE | 2018-08-30 12:46 | NUR ---
Occupational Therapy Impression CGA sit<>stands. SBA ambulation to toilet and back with RW and no rest break. Encouraged ambulation to toilet for voiding with nursing. pt agreeable and motivated to engage in plan. Continue POC. Occupational Therapy Goals 1) Pt will be Min A UB/LB dressing. Progressing towards 2) Pt will be Min A grooming/hygiene. Progressing towards 3) Pt will be Min A toilet task. Progressing towards 4) Pt Suzette Index of ADLs score will improve by 2 points. Goal met. 5) Pt will be Min A shower task. Progressing towards Patient's Goal
--- NOTE | 2018-08-30 15:24 | Medical Nutrition Therapy ---
Nutrition Anthropometrics Height (Inches): 70.00 Height (Calculated Centimeters: 177.306723 Weight (Pounds): 240 Weight (Calculated Kilograms): 108.862 BMI: 34 Hx Weight Loss: Yes Anirudh Nutrition Score: Probably Inadequate Anirudh Nutrition Risk Score: 16 Dietary Referral Nutrition Risk Factors: Unplanned Loss >10lbs Nutrition Risk Comment: Physical Findings Physical Appearance: Obese BMI 30-39 Skin Appearance Skin Appearance: Edema Edema Location Modifier: Right Edema Location: Foot Type of Edema: Degree of Edema: 3+ Gastrointestinal Symptoms GI Symtoms: Appetite Changes, Change in Bowel Pattern Tube Present: Bowel Sounds: Recent Bowel Pattern: Colostomy Stool Characteristics: Brown, Soft Nutritional Diagnosis Nutritional Risk Acuity 2: Abcess/Non-Healing Wound, New Colostomy Past Medical History: HTN, Colorectal cancer, Ostomy Placement, Cirrhosis Nutritional Acuity: 2-Moderate Nutrition Diagnosis: Increased Nutrient Needs Nutrition Etiology: Physiological Causes Nutrition Problem/Etiology/Sym: large wound abdomen, wound vac, reported wt loss of 7% x 6 weeks Energy Requirement: 2926 (MSJ x AF 1.6) Protein Requirement: 130 (1.2g/kg) Fluid Requirement: 2926 (1mL/kcal) Diet Type: Diet as Tolerated SAMARIA/REG Nutrition Intervention: Between meal supplement, Vit/min support Food Likes: Beef Goulash, Gumbo, Minestrone Optional Order Time?: Yes Additional Diet Restrictions: BRING MARTÍNEZ WHEN [employer] BRFT TRAY AT ~10:00 AND LUNCH TRAY AT ~14:00 Diet Comment To RSA: Encourage protein at every meal. Nutrition Monitoring & Eval Nutrition Goals: Eat 75-100% Meal Nutrition Follow-Up: Good Intake RD Patient Assessment Time: [address] Assessment Type: RD Assessment Patient Nutrition Acuity: 2-Moderate Follow Up Date: Aug 31, 2018 Nutritional Comment: 08/13/2018-Reviewed pt medical hx. Pertinent PMH includes colorectal cancer, HTN, and cirrhosis. Pt has large open incision on medial abdomen currently has wound vac in place. Spoke with Vasyl and his Triny. Discussed increased energy and protein needs related to wound healing. Was on SAMARIA and was recieving Martínez on Med/surg, reordered pt should receive at 10am and 2pm every day. Pt reported wt loss over the past 6 weeks. Pt stated his typical wt is 255 lbs and is currently 237 lbs (wt loss of 7% UBW). Encouraged pt to eat high protein foods. Will continue to monitor intakes, weight, and status of wound healing. HAYLEY 07/17 Pt cont on SAMARIA, eating 667% of small to regular portions. No nutr supplement intake reported. No new wt obtained. Pt cont 2+ edema BLE and 3+ edema to feet. Anticipate wt loss when edema resolved. Will cont to monitor and encourage high protein intake and supplment intake for wound healing. CASEY 08/23/18-Pt reports good appetite. Taking Martínez supplement. Does continue to have 3+ edema in RLE, and LLE. Wound is improving per nursing assessment. Colostomy output is normal. Will continue to encourage adequate intake to promote wound healing.HAYLEY 07/30 Pt cont on SAMARIA, eating 100% of most meals. Occasional Martínez intake reported. Wt stable. Pt has 3+ edema BLE. Anticipate wt loss when edema resolved however pt is not currently on duiretic. alb low at 2.3. Will cont to monitor and encourage intake. HASEEB HOWE Aug 30, 2018 15:24
--- NOTE | 2018-08-30 15:34 | NUR ---
Physical Therapy Impression Pt able to perform sit<>stand transfer from chair<>4-wheeled walker with CGA and appropriate use of brakes. Attempted gait training with 4 wheeled walker. Pt able to ambulate 10' with CGA but reports not feeling safe and prefers RW. Pt ambulated 70'x2 with RW, CGA, and wheelchair follow. Pt ambulated on room air with SO2 decreasing to 78% at minimum. Pt with good effort throughout treatment session and reports a goal of discharging home on Thursday, pending medical issues. Pt states he would like to work on walking to the bathroom without a wheelchair follow next PT session. Wound vac dressing change completed with depth of wounds improving greatly. Dimensions are listed below: 1) 0.9cm L x 0.4cm W x 2cm D 2) tunnel at 3 o'clock at R) side of midline measures 1.6cm D 3) 0.4cm L x 0.3cm W x 0.1cm D 4) 1.5cm L x 0.5cm W x 2.8cm D 5) 1cm L x 1.2cm W x 2cm D 6) 0.2cm L x 0.4cm W x 3cm D Physical Therapy Goals 1. Pt to be SBA assist for sit to/from supine transfers 2. Pt to be SBA assist for sit to/from stand transfers 3. Pt to be SBA for ambulation with least restrictive device x 100' 4. Pt to ameya up/down 4 steps with rail and SBA/CGA 5. Pt to be able to manage home unit wound vac safely with base of wound demonstrating improved granulation and gradual closure of base. Patient's Goals
[2018-08-30 16:30] VITALS: BP 113/80
[2018-08-30] MEDS: APAP/HYDROCODONE 325/5 TAB PO PRN (20:32)
[2018-08-30] MEDS: MELATONIN 3 MG TAB PO SCH (20:32)
[2018-08-31 05:32] LABS: PLATELET COUNT, AUTOMATED 292 K/uL (150-450)
[2018-08-31 07:17] VITALS: BP 122/81
[2018-08-31] MEDS: FAMOTIDINE 20 MG TAB PO SCH ×2 (08:45→20:53)
[2018-08-31] MEDS: ENOXAPARIN 40 MG/0.4ML SYR SC SCH (08:45)
[2018-08-31] MEDS: NAPROXEN 500 MG TAB PO SCH ×2 (08:45→17:24)
[2018-08-31] MEDS: MINERALS CHEW SCH (08:45)
[2018-08-31] MEDS: MULTIVITAMINS CHEW SCH (08:45)
[2018-08-31] MEDS: LOSARTAN POTASSIUM 50 MG TAB PO SCH (08:45)
[2018-08-31] MEDS: ONDANSETRON 4 MG ODT TABDP SL PRN (10:26)
--- NOTE | 2018-08-31 11:19 | NUR ---
Occupational Therapy Impression SBA ambulation to toilet and back with RW. Reviewed home assessment with pt and spouse. SpO2 WNL on room air. Continue POC. Occupational Therapy Goals 1) Pt will be Min A UB/LB dressing. Progressing towards 2) Pt will be Min A grooming/hygiene. Progressing towards 3) Pt will be Min A toilet task. Progressing towards 4) Pt Suzette Index of ADLs score will improve by 2 points. Goal met. 5) Pt will be Min A shower task. Progressing towards Patient's Goal
--- NOTE | 2018-08-31 15:10 | NUR ---
Physical Therapy Impression Pt finished with care conference and requests to ambulate from meeting room back to pt's room with W/C follow. Pt tolerated distance of 150' across regular ana and carpeting with use of FWW and W/C follow with wound vac. Upon return to bed, pt continues to requires assist to lift LE's into bed even while using log roll technique with bed rail. pt notes that they will be obtaining a bed rail for home use. Wound #6 at most inferior end demos a more milky discharge and can be further expressed with pressure placed on pt's L) side on the edge of an indurated area. No redness or heat noted around wound bed and no pain with palpation at pt's L) side. Dr. Tanner alerted to this observation and plan is to separately pack this opening with packing strip and change daily, while maintaining the rest of the wound along midline with the wound vac. Wounds listed in order from top to bottom: 1) 0.8cm L x 0.3cm W x 1.8cm D 2) tunnel at 3 o'clock from retaining stitch is 1.2cm D. 3) 1cm L x 0.7cm W x 0.1cm D 4) 2cm L x 0.7cm W x 2.8cm D 5) 1.4cm L x 1cm W x 1.7cm D 6) 0.2cm L x 0.5cm W x 3cm D Wound vac settings remain the same; Dr. Tanner to be present again next Tues for vac dressing change and consideration of transition to daily packing or home vac unit upon d/c home. Physical Therapy Goals 1. Pt to be SBA assist for sit to/from supine transfers 2. Pt to be SBA assist for sit to/from stand transfers 3. Pt to be SBA for ambulation with least restrictive device x 100' 4. Pt to ameya up/down 4 steps with rail and SBA/CGA 5. Pt to be able to manage home unit wound vac safely with base of wound demonstrating improved granulation and gradual closure of base. Patient's Goals
[2018-08-31 16:50] VITALS: BP 105/70
[2018-08-31] MEDS: MELATONIN 3 MG TAB PO SCH (20:53)
[2018-08-31] MEDS: APAP/HYDROCODONE 325/5 TAB PO PRN (21:59)
[2018-09-01] MEDS: ACETAMINOPHEN 325 MG TAB PO PRN (03:16)
[2018-09-01 07:37] VITALS: BP 123/79
[2018-09-01] MEDS: LOSARTAN POTASSIUM 50 MG TAB PO SCH (09:00)
[2018-09-01 09:29] VITALS: BP 92/56
[2018-09-01] MEDS: FAMOTIDINE 20 MG TAB PO SCH ×2 (09:30→20:44)
[2018-09-01] MEDS: ENOXAPARIN 40 MG/0.4ML SYR SC SCH (09:30)
[2018-09-01] MEDS: MINERALS CHEW SCH (09:30)
[2018-09-01] MEDS: NAPROXEN 500 MG TAB PO SCH ×2 (09:30→16:49)
[2018-09-01] MEDS: MULTIVITAMINS CHEW SCH (09:30)
--- NOTE | 2018-09-01 10:00 | NUR ---
[facility] Elsa Thompson [phone] regarding obtaining supplies for home use.
--- NOTE | 2018-09-01 12:16 | NUR ---
Occupational Therapy Impression SBA ambulation 2x10ft with RW. SBA stand pivots x2 with no AD. Min A bathtub transfer with use of shower chair. Pt progressing well towards OT goals. Continue POC. Occupational Therapy Goals 1) Pt will be Min A UB/LB dressing. Progressing towards 2) Pt will be Min A grooming/hygiene. Progressing towards 3) Pt will be Min A toilet task. Progressing towards 4) Pt Suzette Index of ADLs score will improve by 2 points. Goal met. 5) Pt will be Min A shower task. Progressing towards Patient's Goal
--- NOTE | 2018-09-01 14:55 | NUR ---
Physical Therapy Impression Pt ambulated 20'x2 reps in parallel bars while going up and over small platform step x 2 reps and then medium sized platform step x 2 reps. Pt attempted full size step but struggled to place L) foot up on it and declined to progress further. Upon return to room, pt ambulated the last 20' with FWW to his recliner as well. Physical Therapy Goals 1. Pt to be SBA assist for sit to/from supine transfers 2. Pt to be SBA assist for sit to/from stand transfers 3. Pt to be SBA for ambulation with least restrictive device x 100' 4. Pt to ameya up/down 4 steps with rail and SBA/CGA 5. Pt to be able to manage home unit wound vac safely with base of wound demonstrating improved granulation and gradual closure of base. Patient's Goals
[2018-09-01 15:26] VITALS: BP 116/72
[2018-09-01] MEDS: MELATONIN 3 MG TAB PO SCH (20:44)
[2018-09-01] MEDS: APAP/HYDROCODONE 325/5 TAB PO PRN (21:25)
[2018-09-02 07:44] VITALS: BP 107/72
--- NOTE | 2018-09-02 08:29 | NUR ---
Colostomy Supplies - [facility] information provided by Alvarez Escudero RN. Facesheet faxed with a list of supplies needed for home. They will check insurance, [facility] Noted resident also has Medicare.
[2018-09-02] MEDS: LOSARTAN POTASSIUM 50 MG TAB PO SCH (09:00)
[2018-09-02] MEDS: MULTIVITAMINS CHEW SCH (09:14)
[2018-09-02] MEDS: MINERALS CHEW SCH (09:14)
[2018-09-02] MEDS: NAPROXEN 500 MG TAB PO SCH ×2 (09:15→16:54)
[2018-09-02] MEDS: ENOXAPARIN 40 MG/0.4ML SYR SC SCH (09:15)
[2018-09-02] MEDS: FAMOTIDINE 20 MG TAB PO SCH ×2 (09:15→21:13)
--- NOTE | 2018-09-02 13:14 | NUR ---
Colostomy Supplies - Received phone call from [facility] who report that they will not be able to supply colostomy supplies for resident due to his BCBS requiring a [place] distributor. The me+ Program Enrollment and Starter Kit Request form from [facility] completed and faxed to [facility] to obtain a free starter kit. Message left with PT to get assistance from [employer]IE[employer] to we can ensure supplies are obtained. Awning Erector at [facility] stated they would give a follow up call to the resident once the starter kit is sent out and they will assist with obtaining supplies. Also noted that if the resident has home health, they should be providing the supplies.
--- NOTE | 2018-09-02 14:58 | NUR ---
This Physical Therapist or Rn Patient Services was present for the entire physical therapy session directing the services, making the skilled judgement, and was not engaged in treating another patient or doing another task at the same time as the treatment session. Addendum: 09/02/18 at 1459 by MOJGAN KIRAN PT Amended: Links added.
[2018-09-02 17:05] VITALS: BP 107/73
[2018-09-02] MEDS: MELATONIN 3 MG TAB PO SCH (21:13)
[2018-09-02] MEDS: APAP/HYDROCODONE 325/5 TAB PO PRN (22:19)
[2018-09-03 07:49] VITALS: BP 122/84
--- NOTE | 2018-09-03 08:40 | Medical Nutrition Therapy ---
Nutrition Monitoring & Eval RD Patient Assessment Time: [address] Assessment Type: RD Assessment Patient Nutrition Acuity: 2-Moderate Follow Up Date: Sep 07, 2018 Nutritional Comment: 08/13/2018-Reviewed pt medical hx. Pertinent PMH includes colorectal cancer, HTN, and cirrhosis. Pt has large open incision on medial abdomen currently has wound vac in place. Spoke with Vasyl and his Triny. Discussed increased energy and protein needs related to wound healing. Was on SAMARIA and was recieving Gene on Med/surg, reordered pt should receive at 10am and 2pm every day. Pt reported wt loss over the past 6 weeks. Pt stated his typical wt is 255 lbs and is currently 237 lbs (wt loss of 7% UBW). Encouraged pt to eat high protein foods. Will continue to monitor intakes, weight, and status of wound healing. HAYLEY 07/17 Pt cont on SAMARIA, eating 667% of small to regular portions. No nutr supplement intake reported. No new wt obtained. Pt cont 2+ edema BLE and 3+ edema to feet. Anticipate wt loss when edema resolved. Will cont to monitor and encourage high protein intake and supplment intake for wound healing. CASEY 08/23/18-Pt reports good appetite. Taking Gene supplement. Does continue to have 3+ edema in RLE, and LLE. Wound is improving per nursing assessment. Colostomy output is normal. Will continue to encourage adequate intake to promote wound healing.HAYLEY 07/30 Pt cont on SAMARIA, eating 100% of most meals. Occasional Gene intake reported. Wt stable. Pt has 3+ edema BLE. Anticipate wt loss when edema resolved however pt is not currently on duiretic. alb low at 2.3. Will cont to monitor and encourage intake. HASEEB HOWE Sep 03, 2018 08:40
[2018-09-03] MEDS: LOSARTAN POTASSIUM 50 MG TAB PO SCH (09:38)
[2018-09-03] MEDS: MINERALS CHEW SCH (09:39)
[2018-09-03] MEDS: NAPROXEN 500 MG TAB PO SCH ×2 (09:39→16:24)
[2018-09-03] MEDS: ENOXAPARIN 40 MG/0.4ML SYR SC SCH (09:39)
[2018-09-03] MEDS: MULTIVITAMINS CHEW SCH (09:39)
[2018-09-03] MEDS: FAMOTIDINE 20 MG TAB PO SCH ×2 (09:39→20:45)
[2018-09-03] MEDS: APAP/HYDROCODONE 325/5 TAB PO PRN (16:24)
[2018-09-03 16:25] VITALS: BP 124/83
[2018-09-03] MEDS: MELATONIN 3 MG TAB PO SCH (20:45)
[2018-09-04] MEDS: APAP/HYDROCODONE 325/5 TAB PO PRN ×2 (02:25→20:42)
[2018-09-04 07:09] VITALS: BP 120/79
[2018-09-04 09:20] VITALS: BP 124/69
[2018-09-04] MEDS: LOSARTAN POTASSIUM 50 MG TAB PO SCH (09:21)
[2018-09-04] MEDS: NAPROXEN 500 MG TAB PO SCH ×2 (09:21→18:18)
[2018-09-04] MEDS: MULTIVITAMINS CHEW SCH (09:22)
[2018-09-04] MEDS: ENOXAPARIN 40 MG/0.4ML SYR SC SCH (09:22)
[2018-09-04] MEDS: MINERALS CHEW SCH (09:22)
[2018-09-04] MEDS: FAMOTIDINE 20 MG TAB PO SCH ×2 (09:22→20:42)
--- NOTE | 2018-09-04 12:00 | NUR ---
Physical Therapy Impression Late Entry for visit completed Thursday09/03/18. Pt agreeable to address bed mobility and ambulation in room prior to wound vac dressing change, but declines to address stairs at this time. Pt continues to require assistance to lift LE's into bed and notes that she feels able to assist with this once home. Wounds listed in order from top to bottom: 1) 0.8cm L x 0.3cm W x 1.8cm D 2) tunnel at 3 o'clock from retaining stitch is 1.2cm D. 3) 1cm L x 0.7cm W x 0.1cm D 4) 2cm L x 0.7cm W x 2.8cm D 5) 1.4cm L x 1cm W x 1.7cm D 6) 0.2cm L x 0.5cm W x 3cm D Wound vac settings remain the same; Dr. Tanner to be present on for vac dressing change and consideration of transition to daily packing or home vac unit upon d/c home. Physical Therapy Goals 1. Pt to be SBA assist for sit to/from supine transfers 2. Pt to be SBA assist for sit to/from stand transfers 3. Pt to be SBA for ambulation with least restrictive device x 100' 4. Pt to ameya up/down 4 steps with rail and SBA/CGA 5. Pt to be able to manage home unit wound vac safely with base of wound demonstrating improved granulation and gradual closure of base. Patient's Goals
--- NOTE | 2018-09-04 12:13 | NUR ---
Physical Therapy Impression Pt progressing well toward PT goals demonstrating Mod I bed mobility, SBA transfers, SBA gait x 200' with RW and 1 seated rest, and CGA to ascend 1 3" stair and 1 6" stair. Physical Therapy Goals 1. Pt to be SBA assist for sit to/from supine transfers 2. Pt to be SBA assist for sit to/from stand transfers 3. Pt to be SBA for ambulation with least restrictive device x 100' 4. Pt to ameya up/down 4 steps with rail and SBA/CGA 5. Pt to be able to manage home unit wound vac safely with base of wound demonstrating improved granulation and gradual closure of base. Patient's Goals
[2018-09-04 17:00] VITALS: BP 124/68
[2018-09-04] MEDS: MELATONIN 3 MG TAB PO SCH (20:42)
[2018-09-05 07:17] VITALS: BP 106/72
[2018-09-05] MEDS: MULTIVITAMINS CHEW SCH (08:23)
[2018-09-05] MEDS: MINERALS CHEW SCH (08:23)
[2018-09-05] MEDS: LOSARTAN POTASSIUM 50 MG TAB PO SCH (08:24)
[2018-09-05] MEDS: NAPROXEN 500 MG TAB PO SCH ×2 (08:24→17:29)
[2018-09-05] MEDS: FAMOTIDINE 20 MG TAB PO SCH ×2 (08:24→20:19)
[2018-09-05] MEDS: ENOXAPARIN 40 MG/0.4ML SYR SC SCH (08:24)
[2018-09-05] MEDS: ONDANSETRON 4 MG ODT TABDP SL PRN (15:34)
[2018-09-05 19:40] VITALS: BP 114/78
[2018-09-05] MEDS: MELATONIN 3 MG TAB PO SCH (20:19)
[2018-09-05] MEDS: APAP/HYDROCODONE 325/5 TAB PO PRN (22:30)
[2018-09-06 07:55] VITALS: BP 117/77
[2018-09-06] MEDS: NAPROXEN 500 MG TAB PO SCH ×2 (08:47→17:37)
[2018-09-06] MEDS: MULTIVITAMINS CHEW SCH (08:47)
[2018-09-06] MEDS: FAMOTIDINE 20 MG TAB PO SCH ×2 (08:47→21:23)
[2018-09-06] MEDS: MINERALS CHEW SCH (08:47)
[2018-09-06] MEDS: ENOXAPARIN 40 MG/0.4ML SYR SC SCH (08:47)
[2018-09-06] MEDS: LOSARTAN POTASSIUM 50 MG TAB PO SCH (08:48)
--- NOTE | 2018-09-06 12:13 | NUR ---
Occupational Therapy Impression Mod (I) ambulation x20ft, x20ft, x60ft, x80ft with RW. Assist to manage wound vac. Good tolerance and no loss of balance ambulating on various surfaces and over transitions as he will in home environment. Min A sit<>stand from low, soft couch. Discussion regarding appropriate chair/modifications at home to increase safety and independence. Independent oral care standing in bathroom x3 minutes. Continued discussion for energy conservation and adaptive equipment needs. Spouse reports most AE will arrive today/tomorrow. Pt nearing OT goals. Occupational Therapy Goals 1) Pt will be Min A UB/LB dressing. Progressing towards 2) Pt will be Min A grooming/hygiene. Progressing towards 3) Pt will be Min A toilet task. Progressing towards 4) Pt Suzette Index of ADLs score will improve by 2 points. Goal met. 5) Pt will be Min A shower task. Progressing towards Patient's Goal
--- NOTE | 2018-09-06 14:46 | NUR ---
Physical Therapy Impression Pt tolerated up/down 6" platform step x 2 reps, with R) leg to ascend and B) rails in parallel bars. Pt then completed up/down smaller 4" steps x6 stairs in sequence with B) rails and CGA/SBA with good stamina. Physical Therapy Goals 1. Pt to be SBA assist for sit to/from supine transfers 2. Pt to be SBA assist for sit to/from stand transfers 3. Pt to be SBA for ambulation with least restrictive device x 100' 4. Pt to ameya up/down 4 steps with rail and SBA/CGA 5. Pt to be able to manage home unit wound vac safely with base of wound demonstrating improved granulation and gradual closure of base. Patient's Goals
[2018-09-06 15:18] VITALS: BP 92/54
--- NOTE | 2018-09-06 16:04 | Medical Nutrition Therapy ---
Nutrition Anthropometrics Height (Inches): 70.00 Height (Calculated Centimeters: 177.691082 Weight (Pounds): 245 Weight (Calculated Kilograms): 111.357 BMI: 34 Hx Weight Loss: Yes Anirudh Nutrition Score: Probably Inadequate Anirudh Nutrition Risk Score: 16 Dietary Referral Nutrition Risk Factors: Unplanned Loss >10lbs Nutrition Risk Comment: Physical Findings Physical Appearance: Obese BMI 30-39 Skin Appearance Skin Appearance: Edema Edema Location Modifier: Both Edema Location: Lower Extremity Type of Edema: Degree of Edema: 2+ Gastrointestinal Symptoms GI Symtoms: Change in Bowel Pattern Tube Present: Bowel Sounds: Recent Bowel Pattern: Colostomy Stool Characteristics: Brown, Soft Nutritional Diagnosis Nutritional Risk Acuity 2: Abcess/Non-Healing Wound, New Colostomy Past Medical History: HTN, Colorectal cancer, Ostomy Placement, Cirrhosis Nutritional Acuity: 2-Moderate Nutrition Diagnosis: Increased Nutrient Needs Nutrition Etiology: Physiological Causes Nutrition Problem/Etiology/Sym: large wound abdomen, wound vac, reported wt loss of 7% x 6 weeks Energy Requirement: 2926 (MSJ x AF 1.6) Protein Requirement: 130 (1.2g/kg) Fluid Requirement: 2926 (1mL/kcal) Diet Type: Diet as Tolerated SAMARIA/REG Nutrition Intervention: Between meal supplement, Vit/min support Food Likes: Beef Goulash, Gumbo, Minestrone Optional Order Time?: Yes Additional Diet Restrictions: BRING MARTÍNEZ WHEN SPLUNK CONSULTANT BRFT TRAY AT ~10:00 AND LUNCH TRAY AT ~14:00 Diet Comment To RSA: DOCUMENT SUPPLEMENT INTAKE OR REFUSAL, OFFER ALTERNATIVE SUPPLMENT IF REFUSE MARTÍNEZ Nutrition Monitoring & Eval Nutrition Goals: Eat 75-100% Meal, Drink > 2 liters/day Nutrition Follow-Up: Good Intake RD Patient Assessment Time: [address] Assessment Type: RD Assessment Patient Nutrition Acuity: 2-Moderate Follow Up Date: Sep 14, 2018 Nutritional Comment: 08/13/2018-Reviewed pt medical hx. Pertinent PMH includes colorectal cancer, HTN, and cirrhosis. Pt has large open incision on medial abdomen currently has wound vac in place. Spoke with Vasyl and his Triny. Discussed increased energy and protein needs related to wound healing. Was on SAMARIA and was recieving Martínez on Med/surg, reordered pt should receive at 10am and 2pm every day. Pt reported wt loss over the past 6 weeks. Pt stated his typical wt is 255 lbs and is currently 237 lbs (wt loss of 7% UBW). Encouraged pt to eat high protein foods. Will continue to monitor intakes, weight, and status of wound healing. HAYLEY 08/17 Pt cont on SAMARIA, eating 667% of small to regular portions. No nutr supplement intake reported. No new wt obtained. Pt cont 2+ edema BLE and 3+ edema to feet. Anticipate wt loss when edema resolved. Will cont to monitor and encourage high protein intake and supplment intake for wound healing. CASEY 08/23/18-Pt reports good appetite. Taking Martínez supplement. Does continue to have 3+ edema in RLE, and LLE. Wound is improving per nursing assessment. Colostomy output is normal. Will continue to encourage adequate intake to promote wound healing.HAYLEY 08/30 Pt cont on SAMARIA, eating 100% of most meals. Occasional Martínez intake reported. Wt stable. Pt has 3+ edema BLE. Anticipate wt loss when edema resolved however pt is not currently on duiretic. alb low at 2.3. Will cont to monitor and encourage intake. CASEY 09/06 Pt cont on SAMARIA, intake range 75-100%. No nutr supplment intake reported. Will offer alternative nutr supplement if pt dislikes or getting tired of Martínez. Alb 2.3 . Wt up 3% since admision to unit. pt cont 2+ edema BLE. Anticipate wt loss when edema resolved. Will cont to monitor and encourage intake. HASEEB HOWE Sep 06, 2018 16:04
[2018-09-06] MEDS: MELATONIN 3 MG TAB PO SCH (21:23)
[2018-09-06] MEDS: APAP/HYDROCODONE 325/5 TAB PO PRN (21:23)
[2018-09-07 06:16] LABS: PLATELET COUNT, AUTOMATED 254 K/uL (150-450)
[2018-09-07 08:15] VITALS: BP 107/75
[2018-09-07] MEDS: ONDANSETRON 4 MG ODT TABDP SL PRN (08:58)
[2018-09-07] MEDS: LOSARTAN POTASSIUM 50 MG TAB PO SCH (09:00)
[2018-09-07] MEDS: ENOXAPARIN 40 MG/0.4ML SYR SC SCH (09:57)
[2018-09-07] MEDS: FAMOTIDINE 20 MG TAB PO SCH ×2 (11:00→20:52)
[2018-09-07] MEDS: MULTIVITAMINS CHEW SCH (11:00)
[2018-09-07] MEDS: MINERALS CHEW SCH (11:00)
[2018-09-07] MEDS: NAPROXEN 500 MG TAB PO SCH ×2 (11:00→17:16)
--- NOTE | 2018-09-07 11:36 | NUR ---
Occupational Therapy Impression Pt alert and agreeable to OT tx. Pt reports desire to walk and obtain weight on scale, declined further ADLs/interventions. SBA ambulation 2x90ft with RW. SBA stepping onto scale to obtain weight. Independent standing [id number] with RW. Pt has met skilled OT goals. Declines further needs/concerns to address with OT at this time. Recommend HH OT upon discharge. Occupational Therapy Goals 1) Pt will be Min A UB/LB dressing. Progressing towards 2) Pt will be Min A grooming/hygiene. Progressing towards 3) Pt will be Min A toilet task. Progressing towards 4) Pt Suzette Index of ADLs score will improve by 2 points. Goal met. 5) Pt will be Min A shower task. Progressing towards Patient's Goal
--- NOTE | 2018-09-07 12:00 | NUR ---
Late Medications Late am meds occured due to patient feeling nauseated. during the normal 0900 medication time frame.
--- NOTE | 2018-09-07 13:41 | Medical Nutrition Therapy ---
Nutritional Education Nutrition Education Topic: Other (colostomy diet recommendations) Learning Readiness: Interested ( interested) Teaching Methods: Discussion Response to Teaching: Verbalize understanding Teaching Recipient: Patient Nutrition Counseling: Pt and ttended session. Provided handout on diet with colostomy and reviewed foods that can cause blockage, odor, loose stools, thicken stools, color change. Nutrition Monitoring & Eval RD Patient Assessment Time: [address] Assessment Type: RD Education Patient Nutrition Acuity: 2-Moderate Follow Up Date: Sep 14, 2018 Nutritional Comment: 08/13/2018-Reviewed pt medical hx. Pertinent PMH includes colorectal cancer, HTN, and cirrhosis. Pt has large open incision on medial abdomen currently has wound vac in place. Spoke with Vasyl and his Triny. Discussed increased energy and protein needs related to wound healing. Was on SAMARAI and was recieving Gene on Med/surg, reordered pt should receive at 10am and 2pm every day. Pt reported wt loss over the past 6 weeks. Pt stated his typical wt is 255 lbs and is currently 237 lbs (wt loss of 7% UBW). Encouraged pt to eat high protein foods. Will continue to monitor intakes, weight, and status of wound healing. HAYLEY 08/17 Pt cont on SAMARIA, eating 667% of small to regular portions. No nutr supplement intake reported. No new wt obtained. Pt cont 2+ edema BLE and 3+ edema to feet. Anticipate wt loss when edema resolved. Will cont to monitor and encourage high protein intake and supplment intake for wound healing. BK 08/23/18-Pt reports good appetite. Taking Gene supplement. Does continue to have 3+ edema in RLE, and LLE. Wound is improving per nursing assessment. Colostomy output is normal. Will continue to encourage adequate intake to promote wound healing.HAYLEY 08/30 Pt cont on SAMARIA, eating 100% of most meals. Occasional Gene intake reported. Wt stable. Pt has 3+ edema BLE. Anticipate wt loss when edema resolved however pt is not currently on duiretic. alb low at 2.3. Will cont to monitor and encourage intake. BK 09/06 Pt cont on SAMARIA, intake range 75-100%. No nutr supplment intake reported. Will offer alternative nutr supplement if pt dislikes or getting tired of Gene. Alb 2.3 . Wt up 3% since admision to unit. pt cont 2+ edema BLE. Anticipate wt loss when edema resolved. Will cont to monitor and encourage intake. HASEEB HOWE Sep 07, 2018 13:41
--- NOTE | 2018-09-07 15:37 | NUR ---
Physical Therapy Impression Pt/CG demo good understanding of safety awareness skills during transfers and mobility. Pt requires Min assist for sit to supine but is Modified indep with supine to sit. Wound vac discontinued per Dr. Tanner as vac is currently indicating a blockage. Dr. Tanner will come inspect the wound further this evening. Measurements for each individual opening are as follows: 1) 0.5cm L x 0.3cm W x 2cm D 2) Tunnel at retaining stitch to R) side measures 1.2cm D @ 3 o'clock 3) fully healed 4) 1.4cm L x 0.7cm W x 2.5cm D 5) 0.7cm L x 0.4cm W x 1.2cm D 6)0.2cm L x 0.4cm W x 0.5cm D *New area 4 1/2) skin breakdown at previous retaining stitch at pt's R) side: 0.7cm L x 2.3cm W x 0.5cm D Canister with 125ml fluid Pt/CG to place gauze over open areas and secure with medipore tape. Pt may shower normally and then place new gauze and tape thereafter. Girth measurements: Ankle Calf R) 31cm 47cm L) 31.5cm 44cm Physical Therapy Goals 1. Pt to be SBA assist for sit to/from supine transfers 2. Pt to be SBA assist for sit to/from stand transfers 3. Pt to be SBA for ambulation with least restrictive device x 100' 4. Pt to ameya up/down 4 steps with rail and SBA/CGA 5. Pt to be able to manage home unit wound vac safely with base of wound demonstrating improved granulation and gradual closure of base. Patient's Goals
[2018-09-07] MEDS ORDERED: LOR5/325 PO (17:46)
--- NOTE | 2018-09-07 17:55 | Short(Outpt) Discharge Summary ---
Discharge Summary Reason for Hosp/Final Diag: (1) Weakness Status: Resolved Hospital Course & Plan: Admit to [facility] for physical therapy and occupational therapy - s/p Kelsie procedure - evidence of good bowel function - diet as tolerated - PRN pain medications - outpatient planning for adjuvant therapy Will need Oncology consult as an outpt. Check CBC and CMP this am. Had CEA checked at [facility] several weeks ago. 08/20/18: Doing well. Continue PT/OT, wound care, stoma care education. Hopefully home in the next 2 weeks and then will refer to [facility] for adjuvant therapy. 08/27/18: Check some labs this morning due to nausea yesterday. Labs are concerning for increasing alkaline phosphatase and slightly increasing transaminases. Bilirubin is normal. Previous CT completed 2 months ago revealed gallstones. The LFT changes are certainly concerning for metastatic disease but also could be due to his gallstones, possibly passing stones through his common bile duct. We'll get a right upper quadrant ultrasound and a CT scan of his chest abdomen and pelvis to look for evidence of biliary disease or metastatic lesions to his bone or liver. I have explained this to him and he seemed somewhat deflated after telling him this but he seems to understand and is agreeable with this plan. 08/28/18: Profound debilitation improving. ABD CT and ABD US reviewed with pt/ and Dr Blood last evening. Suspect he will pass the small distal CBD stone. Will cont diet as ameya and trend LFTs. 08/29/18: LFTs cont to rise. In lieu of no GI symptoms will continue to follow. If TB rises further, may need to consider transfer to Dr Connelly for ERCP at [facility]. 09/07/18: Pt is doing very well. Abdominal wounds are now too small for the wound vac. LFTs are returning to normal. He is doing well from PT/OT standpoint. Will plan on discharge tomorrow with home health RN, PT, OT, etc. Will refer to Medical Oncology. I will see him back next week. 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 Need to see Oncology as an outpt. (5) Choledocholithiasis Status: Resolved Hospital Course & Plan: LFTs improved a bit today. Will repeat for trend in am. Hold on referral to Dr Connelly for ERCP at this point. Departure Discharge to: Home, Home Health Discharge Instructions Home Meds Active Scripts Hydrocodone Bit/Acetaminophen (HYDROCODON-ACETAMINOPHEN 5-325) 1 Each Tablet, 1 TAB PO TID PRN for pain, #20 TAB 0 Refills Decrease how many you take each day until you no longer need to take any of them in the next couple of weeks. Prov:SARWAT BLOOD MD 09/07/18 Reported Medications Losartan Potassium (LOSARTAN POTASSIUM) 50 Mg Tablet, 1 TAB PO QDAY 06/30/18 Follow up Referrals: General Surgery - 09/14/18 @ Surgery, General with SARWAT BLOOD MD You have a follow up appointment scheduled with Dr. Blood on 09/14/18, at 4:00pm. Oncology - In Two Weeks @ [facility] Diet: Regular Activity: As Tolerated Special Instructions: Follow up with Dr. Coffman at [facility] September 23, 2018 @ 0930 Cover the wounds with dry guaze and change these daily. You may shower as desired but remove the dressings and then place new dressings on the wounds after showering. Don't immerse the wounds until they're completely healed. SARWAT BLOOD MD Sep 07, 2018 17:55
[2018-09-07] MEDS ORDERED: INFLUENZA VIRUS VAC 0.5ML SYR IM ONLY ONE (18:25)
[2018-09-07] MEDS ORDERED: PNEUMOC 13-VAL CONJ-DIP CRM/PF 0.5 ML SYR IM ONLY ONE (19:00)
[2018-09-07 19:04] VITALS: BP 116/70
[2018-09-07] MEDS: NYSTATIN 100,000 U/GM PWD 15GM TP SCH (20:52)
[2018-09-07] MEDS: MELATONIN 3 MG TAB PO SCH (20:52)
[2018-09-07] MEDS: APAP/HYDROCODONE 325/5 TAB PO PRN (22:14)
[2018-09-08 07:16] VITALS: BP 119/80
[2018-09-08] MEDS: LOSARTAN POTASSIUM 50 MG TAB PO SCH (09:00)
[2018-09-08] MEDS: MULTIVITAMINS CHEW SCH (09:51)
[2018-09-08] MEDS: MINERALS CHEW SCH (09:51)
[2018-09-08] MEDS: ENOXAPARIN 40 MG/0.4ML SYR SC SCH (09:52)
[2018-09-08] MEDS: NAPROXEN 500 MG TAB PO SCH (09:52)
[2018-09-08] MEDS: NYSTATIN 100,000 U/GM PWD 15GM TP SCH (09:52)
[2018-09-08] MEDS: FAMOTIDINE 20 MG TAB PO SCH (09:52)
--- NOTE | 2018-09-08 14:54 | NUR ---
OCCUPATIONAL THERAPY Dressing Assistance: Spouse assists with dressing Bathing Assistance: Min A tub transfer with extended tub transfer bench Bathing Equipment: Extended tub transfer bench Home Assessment: Completed Feeding Assistance: Set-up Feeding Specialized Equipment: None Toilet Use: Standby Assistance Verbalizes Needs: Yes Understands Precautions: Yes Cooperative: Yes Family Teaching: Yes Occupational Therapy Comment:
--- NOTE | 2018-09-08 15:00 | OT ECF NOTE ---
Type of Note: Discharge Note Primary Medical Diagnosis: Generalized weakness s/p recent complicated surgical history for colonic obstruction and descending colon cancer. Patient has a wound vac and recent colostomy Occupational Therapy Evaluation Date: 08/12/18 SUBJECTIVE: Prior Hospitalization: [facility] 06/30/18-07/01/18. Transferred to [facility] in [place] 07/01/18-July 2018. Pt had been at [facility] for skilled care about one week. Then, [facility] medical 08/09/18-. Prior Level of Function: Independent with all ADLs/IADLs. Occasionally, ambulating with a cane. 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 Prior Living Status: Single level house Spouse Assist by family Community Services: No known needs Home Accessibility: Stairs without rails-One step into home. One step down into bathroom. All needs on one level Tub/shower combination Spouse reports narrow doorways. May need to side step with RW into home office. Equipment Owned: Cane, RW, bed rail, w/c, tub bench, pressure relief seat cushions, toilet riser Medical Complications/Past Medical History: Please refer to EMR Psychosocial Support: Supportive spouse Pain Scale (0-10): None reported at time of last OT visit (09/07/18) Hand Dominance: Right OBJECTIVE: Strength: MMT: Right Left Shoulder Flexion [*] [*] Elbow Flexion [*] [*] Wrist Extension [*] [*] Corporate Legal Secretary [*] [*] (5= normal, 4= good, 3= fair, 2= poor, 1= trace) ROM: Right, Moderately limited Sensation: No paraesthesia reported Functional Transfer: Assistive Device: Rolling walker Transfer Ability: SBA ADL: Upper body dressing: Assistive device: Spouse plans to assist with dressing at home Upper body dressing ability: Spouse assists Lower body dressing: Assistive device: Spouse plans to assist with dressing at home Lower body dressing ability: Spouse assists Toileting: Assistive device: Spouse assists. Raised toilet seat. Toileting ability: SBA Grooming/hygiene: Assistive device: Seated Grooming ability: Set-up Bathing: Assistive device: Shower chair Bathing ability: Minimum assistance Standardized Assessment: Suzette Index of Activities of Daily Livin/20 upon initial evaluation (08/12/18). 07/26 at 2-week progress note (08/26/18). upon discharge (09/08/18). 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 Pt has met all skilled OT goals. Pt and spouse present with no further questions/concerns or needs to address with OT at time of discharge. Short Term Goals: 1) Pt will be Min A UB/LB dressing. Goal met. 2) Pt will be Min A grooming/hygiene. Goal met. 3) Pt will be Min A toilet task. Goal met. 4) Pt Suzette Index of ADLs score will improve by 2 points. Goal met. 5) Pt will be Min A shower task. Goal met. 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 Thank you for this referral. If you have any questions, concerns, or comments about this report or plan, please contact me at . Jessica Parra MS, OTR/L Occupational Therapist [facility]ARRY
--- NOTE | 2018-09-08 21:18 | PT ECF NOTE ---
Type of Note: Discharge Note Primary Medical Diagnosis: Generalized weakness s/p recent complicated surgical history for colonic obstruction and descending colon cancer. Patient has a wound vac and recent colostomy Physical Therapy Mobility and Wound Vac Evaluation Date: 08/13/18 SUBJECTIVE: Prior Hospitalization: [facility] 06/30/18-07/01/18. Transferred to [facility] in [place] 07/01/18-July 2018. Pt had been at [facility] for skilled care about one week. Then, [facility] medical 08/09/18-08/12/18. Prior Level of Function: Independent with all ADLs/IADLs. Occasionally, ambulating with a cane. 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 Prior Living Status: Single level house Spouse Assist by family Community Services: No known needs Home Accessibility: Stairs without rails-Two steps into home. One step down into bathroom. All needs on one level Tub/shower combination Spouse reports narrow doorways. May need to side step with RW into home office. Equipment Owned: Cane; FWW and obtaining W/C for MD visits Medical Complications/Past Medical History: Please refer to EMR Psychosocial Support: Supportive spouse Pain Scale (0-10): None reported at time of discharge Hand Dominance: Right OBJECTIVE: Other Neuro findings: appears to be WFL Bed Mobility: Min A log roll technique for sit to supine in order to raise LE's into bed; Modified indep with bed rail for supine to sit. Assistive device: Bed rail; Head of bed flat Transfers: SBA/Modified indep Assistive Device: RW Gait: SBA/Modified indep x 250' Assistive device: RW Stairs: SBA/CGA; up/down platform step x 2 reps and up/down small rise stairs with 6 in series using B) rails. Other Objective Measures: Wound vac discontinued on 09/07/18 and transitioned to traditional gauze and tape dressings. ASSESSMENT: Pt has made slow, steady progress with functional mobility. Pt will continue to benefit from skilled Home healthcare PT for strengthening and functional mobility training in order to return to independent prior level of function within his own environment. Problem List/Current Limitations: Pain, Decreased activity ameya, Decreased strength, Decreased balance, Generalized weakness, Short Term Goals/UPDATED: (Met) 1. Pt to be SBA assist for sit to/from supine transfers 2. Pt to be SBA assist for sit to/from stand transfers 3. Pt to be SBA for ambulation with least restrictive device x 100' 4. Pt to ameya up/down 4 steps with rail and SBA/CGA 5. Pt to be able to manage home unit wound vac safely with base of wound demonstrating improved granulation and gradual closure of base. Rebeamer Goals: Return home with [facility] services for mobility and wound vac management. Patient Goals: Return home Rehabilitation Prognosis: Fair Barriers for Discharge: Pt will continue to be supported by and has engaged more in care within the past week. PLAN: The patient will benefit from skilled home healthcare physical therapy services and nursing to manage further abdominal wound care and stoma care teaching with progression to further encourage pt participation. Thank you for this referral. If you have any questions, concerns, or comments about this report or plan, please contact me at . H. Monalisa Tan, PT, MPT, OMS MTDD
--- NOTE | 2018-09-10 08:11 | NUR ---
DC MDS completed with pt. C: 15, D: 05, E: no concerns, Q: plans to DC to community, referral made for [facility]. Will continue to follow should any additional DC needs arise. SW also left list of mental health counselors in community with pt.
== END 2018-09-08 12:25 | disposition home health service (06) | DRG 394 ==
LOC: ECF 11:30
PROVIDERS: ADMIT Surgery; ATTEND Surgery
DX: Z43.3 Encounter for attention to colostomy (principal); C18.6 Malignant neoplasm of descending colon; K80.70 Calculus of gallbladder and bile duct without cholecystitis without obstruction; R53.1 Weakness; I10 Essential (primary) hypertension; R79.89 Other specified abnormal findings of blood chemistry; Z23 Encounter for immunization
CPT/HCPCS: 36415; 71270; 74178; 76705; 82040; 82247; 82310; 82374; 82378; 82435; 82565; 82947; 83690; 84075; 84132; 84155; 84295; 84450; 84460; 84520; 85025; 86140; 90670; 97161; 97165; 97605; 97606; J1650; Q9967; S0119

== ENCOUNTER → 2018-09-30 | Outpatient (CLI) | payer BC, MEDICARE ==
[2018-07-01 15:21] VITALS: BMI 36.7
[~2018-09-30] MED LIST changes: +DEXT1TAB PO; +GABA-549 PO; +IOPAMIDOL 76% 100 ML INFUS BTL 100 ML ONE; +LOR5/325 PO; +OXYM15MI14 ENA
--- NOTE | 2018-09-30 09:38 | RADIOLOGY IMAGING REPORT ---
FACILITY: PATIENT NAME: Felipe Coates : 1945 MR: [id number] V: [id number] EXAM DATE: ORDERING PHYSICIAN: RONALD REY TECHNOLOGIST: Location: [facility] Patient: Felipe Coates : 1945 Visit/Account:[id number] Date of Sevice: 09/30/2018 CT CHEST ABDOMEN PELVIS W & W/O History: Staging ADDITIONAL CLINICAL HISTORY: Colon cancer TECHNIQUE: Contiguous axial images were performed through the chest , abdomen, pelvis to the level of the adrenal glands with and without IV contrast. Coronal and sagittal reformatting was also perf ormed. One of the following dose optimization techniques was utilized in the performance of this exa m: Automated exposure control; adjustment of the mA and/or kV according to the patient's size; or use of an iterative reconstruction technique. Specific details can be referenced in the facility's [facility] CT exam operational policy. Contrast: 75 mL [id number] COMPARISON STUDIES: Comparison chest abdomen pelvis 08/27/2018. Lungs / Pleura: Moderate right-sided pleural effusion is unchanged. Left-sided pleural effusion mcintyre s decreased in size with minimal residual fluid. No pulmonary nodules are seen. Mediastinum/nodes: negative. Heart and vessels: Moderate coronary artery calcifications are noted. Heart normal in size. Musculoskeletal / Body wall: There is mild thoracic scoliotic curvature. No bone lesions are ident ified. Abdomen and pelvis: Hepatobiliary: There are multiple very subtle hypodense lesions in the liver which are very difficul t to see on both post contrast and noncontrast series. Largest lesion measures 3.5 cm with several a dditional lesions measuring approximate 1.5 cm. I would estimate there are half dozen lesions throug h the liver and this is very concerning for hepatic metastasis rather than regional hepatic steatosis although the very subtle appearance would be unusual.. This represents a new development from the p revious study. Multiple stones are seen in the gallbladder. Spleen: Negative. Adrenals: Negative. Pancreas: Negative. Kidneys ureters or bladder: Several nonobstructive small stones are seen in the left kidney. 1.5 cm stable cyst left kidney. Urinary bladder normal. Genitalia: Negative. GI: Again noted is a diverting colostomy left lower quadrant with a Kelsie pouch. There is divert iculosis noted in the Kelsie pouch. Vessels/spaces/nodes: There are several pelvic lymph nodes which are mildly prominent with subtle in crease in size from the previous study. For example, a left pelvic sidewall lymph node (image 177 se jj 7) previously measured 1.1 x 0.8 cm and now measures 1.6 x 1.0 cm. A right pelvic sidewall lymp h node (same image) previously measured 0.9 x 0.4 cm now measures 1.0 x 0.7 cm. A right iliac lymph node (image 182) is essentially unchanged measuring 1.4 x 0.6 cm. Lymph nodes in the abdomen are wit hin normal limits in size with largest in the retroperitoneum and left renal pedicle measuring 1.2 cm longest dimension and unchanged.. Vasculature unremarkable for patient age. Bones/soft tissues: Degenerative changes noted lumbar spine. No bone lesions identified. Right hip orthopedic hardware related to prior fracture noted. Prior study demonstrated a hyperdense mass in the right iliac this muscle probably representing hemor rhage. It is now hypodense and round and measures 3 cm diameter. This most likely represents a asher gn evolving hemorrhage although theoretically hemorrhage into a pre-existing metastasis could also be considered. Additional findings: Postsurgical midline scar seen through the abdomen compatible to recent history . IMPRESSION: Diverting colostomy with Kelsie pouch again noted. Diverticulosis in the Kelsie pouch. There are multiple very subtle hypodense liver lesions which demonstrate no enhancement. I am very c oncerned this represents hepatic metastasis rather than regional hepatic stea osis. Metastasis could be confirmed with either MRI of the liver or follow-up PET/CT (preferred since it can also evaluate the pelvic lymph nodes detailed below and evaluate for CT occult osseous metastasis).Several mildly p rominent pelvic lymph nodes slightly increased in size. This could certainly be reactive to the rece nt surgery but could also represent early payal metastatic disease. Moderate right pleural effusion unchanged and diminishing small left pleural effusion. Cholelithiasis. Left-sided Nephrolithiasis Evolving right iliacus muscle hematoma. Resolving hemorrhage in a muscular metastasis less likely al though not entirely excluded Report Dictated By: Omari Bullard MD at 09/30/2018 8:45 AM Report E-Signed By: Omari Bullard MD at 09/30/2018 9:31 AM WSN:[id number]
== END ==
LOC: CT 00:28
PROVIDERS: ATTEND Internal Medicine Medical Oncology
DX: K57.32 Diverticulitis of large intestine without perforation or abscess without bleeding (principal); Z93.3 Colostomy status; J90 Pleural effusion, not elsewhere classified; N20.0 Calculus of kidney; K80.20 Calculus of gallbladder without cholecystitis without obstruction
CPT/HCPCS: 71270; 74178; Q9967